=== PATIENT | female | born 1985 | race Caucasian/White ===

== ENCOUNTER → 2019-11-30 07:51 | Outpatient (BNVA) | payer MEDICARE, MEDICAID, SELFPAY | PROVIDERS: PCP Psychiatry & Neurology Psychiatry; Visit Provider Nurse Practitioner | DX: F33.2 Major depressive disorder, recurrent severe without psychotic features (principal); F41.1 Generalized anxiety disorder; F43.12 Post-traumatic stress disorder, chronic; F90.2 Attention-deficit hyperactivity disorder, combined type | CPT/HCPCS: 99214; 99215 ==

== ENCOUNTER → 2020-01-22 08:18 | Outpatient (BNVA) | payer MEDICARE, MEDICAID, SELFPAY | PROVIDERS: PCP Psychiatry & Neurology Psychiatry; Visit Provider Nurse Practitioner | DX: F90.2 Attention-deficit hyperactivity disorder, combined type (principal); F43.12 Post-traumatic stress disorder, chronic; F41.1 Generalized anxiety disorder; F33.2 Major depressive disorder, recurrent severe without psychotic features | CPT/HCPCS: 99214 ==

== ENCOUNTER 2020-01-25 06:00 | Outpatient (RCR) | payer MEDICARE, MEDICAID, SELFPAY | END 2020-02-13 23:59 | disposition home or self-care (01) | LOC: APT 06:00 | PROVIDERS: PCP Psychiatry & Neurology Psychiatry; Referring Provider Orthopaedic Surgery Sports Medicine; Visit Provider Orthopaedic Surgery Sports Medicine | DX: M25.561 Pain in right knee (principal) | CPT/HCPCS: 97110; 97163; 97530 ==

== ENCOUNTER 2020-02-14 06:00 | Outpatient (RCR) | payer MEDICARE, MEDICAID, SELFPAY | END 2020-03-14 23:59 | disposition home or self-care (01) | LOC: APT 06:00 | PROVIDERS: PCP Psychiatry & Neurology Psychiatry; Referring Provider Orthopaedic Surgery Sports Medicine; Visit Provider Orthopaedic Surgery Sports Medicine | DX: M25.561 Pain in right knee (principal) | CPT/HCPCS: 97110 ==

== ENCOUNTER → 2020-03-18 08:21 | Outpatient (BNVA) | payer MEDICARE, MEDICAID, SELFPAY | PROVIDERS: PCP Psychiatry & Neurology Psychiatry; Visit Provider Nurse Practitioner | DX: F90.2 Attention-deficit hyperactivity disorder, combined type (principal); F43.12 Post-traumatic stress disorder, chronic; F41.1 Generalized anxiety disorder; F33.2 Major depressive disorder, recurrent severe without psychotic features | CPT/HCPCS: 99214 ==

== ENCOUNTER 2020-04-29 08:35 | Outpatient (CLI) | payer MEDICARE, MEDICAID, SELFPAY ==
--- NOTE | 2020-04-29 08:47 | CT_ITS ---
NOTE: Report was unsigned for reason: Ordering provider was edited. Original Signature date and time was: 04/29/20 1009 WS: [id number] CT chest wo con [id number] REASON FOR EXAM: LUNG NODULE IV CONTRAST ADMINISTERED: None. TOTAL EXAM DLP: 931.[address] scans at [facility] use at least one of these dose optimization techniques: automated exposure control; mA and/or kV adjustment per patient size (includes targeted exams where dose is matched to clinical indication); or iterative reconstruction. FINDINGS: The thyroid is of normal size. No supraclavicular nodes are masses are seen. The mediastinum showed no abnormalities. Along the right lower lung is a 3.72 mm nodule. The peripheral lungs show normal perfusion with no deficits noted. The liver was normal previous cholecystectomy changes. The adrenal glands were normal no adenomas are seen. The heart chambers and aorta were normal. No dilatation is seen. [facility] CT/CT chest wo con [id number] IMPRESSION: A 3.72 mm nodule in the right lower lung is seen follow-up with six-month scann ing as part of normal protocols.
== END 2020-04-29 08:36 | disposition home or self-care (01) ==
LOC: RAD 08:41
PROVIDERS: PCP Psychiatry & Neurology Psychiatry; Visit Provider Surgery Surgical Critical Care
DX: R91.1 Solitary pulmonary nodule (principal)
CPT/HCPCS: 71250

== ENCOUNTER → 2020-05-24 10:03 | Outpatient (BNVA) | payer MEDICARE, MEDICAID, SELFPAY | PROVIDERS: PCP Psychiatry & Neurology Psychiatry; Visit Provider Nurse Practitioner | DX: F90.2 Attention-deficit hyperactivity disorder, combined type (principal); F43.12 Post-traumatic stress disorder, chronic; F41.1 Generalized anxiety disorder; F33.2 Major depressive disorder, recurrent severe without psychotic features | CPT/HCPCS: 99214 ==

== ENCOUNTER → 2020-07-08 09:04 | Outpatient (BNVA) | payer MEDICARE, MEDICAID, SELFPAY | PROVIDERS: PCP Psychiatry & Neurology Psychiatry; Visit Provider Nurse Practitioner | DX: F43.12 Post-traumatic stress disorder, chronic (principal); F41.1 Generalized anxiety disorder; F90.2 Attention-deficit hyperactivity disorder, combined type; F33.2 Major depressive disorder, recurrent severe without psychotic features | CPT/HCPCS: 99213 ==

== ENCOUNTER → 2020-08-14 07:32 | Outpatient (BNVA) | payer MEDICARE, MEDICAID, SELFPAY | PROVIDERS: PCP Psychiatry & Neurology Psychiatry; Visit Provider Nurse Practitioner | DX: F43.12 Post-traumatic stress disorder, chronic (principal); F90.2 Attention-deficit hyperactivity disorder, combined type; F41.1 Generalized anxiety disorder; F33.2 Major depressive disorder, recurrent severe without psychotic features | CPT/HCPCS: 99214 ==

== ENCOUNTER 2020-09-19 13:31 | Emergency (ER) | payer MEDICARE, MEDICAID, SELFPAY ==
[2020-09-19 13:34] VITALS: BP 164/82; PULSE 104; RESP 18; TEMP 36.4; O2SAT 96; BMI 35.5
--- NOTE | 2020-09-19 13:42 | ECG_ITS ---
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
--- NOTE | 2020-09-19 13:42 | XR_ITS ---
WS: [id number] XR chest 1V portable [id number] REASON FOR EXAM: cp FINDINGS: The heart and mediastinum are within normal limits. No active pulmonary parenchymal or pleural disease noted. Intramedullary corina left humerus. XR/XR chest 1V portable [id number] IMPRESSION: No acute chest abnormality.
--- NOTE | 2020-09-19 13:43 | W.ED.CHESTPA ---
HPI - Chest Pain General: Chief Complaint: Chest Pain Stated Complaint: cp Time Seen by Provider: 09/19/20 13:41 History of Present Illness: HPI narrative: Patient is a 35-year-old female comes to the ED with chest pain. Patient states that chest pain started in the middle of night last night. She describes it as sharp pain worsens with inspiration. She also describes having some pain radiating to left shoulder as well. Currently rates the pain a 6 out of 10. The intensity of the pain has caused episode of emesis. She did say that the evening before chest pain started she was practicing some [employer] moves with her son. She states she was thrown to the ground and hit her chest pretty hard. She did not have any pain immediately after. Associated symptoms: Reports vomiting (one episode); Deny abdominal pain, dyspnea, fever(s), nausea or palpitations Review of Systems Const: Denies: fever(s), chills or fatigue Eyes: Denies: change in vision or eye discomfort ENMT: Denies: throat pain, odynophagia, nasal discharge or nasal congestion Card: Reports: chest pain (anterior chest wall); Denies: palpitations, edema, swelling of feet/ankles, dyspnea on exertion or orthopnea Resp: Reports: pain on inspiration; Denies: dyspnea, productive cough or non-productive cough GI: Reports: vomiting (one episode); Denies: abdominal pain, nausea, diarrhea, constipation or hematochezia : Denies: flank pain, dysuria or hematuria Musc: Denies: neck pain, back pain or extremity swelling Skin/Breast: Denies: rash or new lesions Neuro: Denies: headache(s), numbness in extremities or weakness in extremities PFSH ED PFSH: Medical History Attention-deficit hyperactivity disorder, combined type Generalized anxiety disorder Major depressive disorder, recurrent severe without psychotic features Post-traumatic stress disorder, chronic Social History Smoking and tobacco status: former smoker Physical Exam Const: COMMON NORMALS: patient oriented x3 and alert GENERAL APPEARANCE: cooperative and comfortable HENMT: COMMON NORMALS: normocephalic HEAD & SCALP: normocephalic MOUTH: Normal oral and palatal mucosa present THROAT: posterior oropharynx normal and uvula midline Neck/C-Spine: COMMON NORMALS: supple GENERAL: Yes normal visual inspection Chest: CHEST: Yes tenderness sternum Resp: COMMON NORMALS: normal respiratory effort, No retractions, No use of accessory muscles and clear to auscultation bilaterally AUSCULTATION: clear to auscultation bilaterally Cardio: COMMON NORMALS: regular rate, regular rhythm, S1 normal heart sound present, S2 normal heart sound present, No gallops present (Cardio), No clicks present (Cardio), No murmurs present (Cardio) and Peripheral pulses 2+ throughout RATE: regular rate RHYTHM: regular rhythm HEART SOUNDS: S1 normal heart sound present and S2 normal heart sound present PERIPHERAL PULSES: Peripheral pulses 2+ throughout GI: COMMON NORMALS: Normal to inspection, nondistended, normoactive bowel sounds present, Soft to palpation, non-tender and no masses PALPATION: Yes Soft to palpation : COMMON NORMALS: Yes no CVA tenderness BLADDER/KIDNEY EXAM: Yes no CVA tenderness Back/Pelvis: COMMON NORMALS: no CVA tenderness Extremity: COMMON NORMALS: normal to inspection and no pedal edema Neuro: COMMON NORMALS: patient oriented x3 and moves all extremities SENSORIUM/ORIENTATION: Yes alert Skin: GENERAL SKIN EXAM: dry skin Course Vital Signs: Vital signs: Vital Signs Temperature 97.5 F L 09/19/20 13:34 Pulse Rate 104 H 09/19/20 13:34 Respiratory Rate 20 H 09/19/20 14:19 Blood Pressure 164/82 09/19/20 13:34 Pulse Oximetry 96 09/19/20 13:34 MDM - Chest Pain MDM Narrative: Medical decision making narrative: Patient is a 35-year-old female comes to the ED with chest pain. Patient says it started last night and is located on anterior chest wall. It is pleuritic in nature. Patient did state she was practicing some [email or web address] moves with her son last night and she was thrown to the ground hard and chest hit the ground. exam showed tenderness to the sternum but no other exam findings. Chest x-ray showed no acute findings. CBC and CMP were unremarkable. EKG showed normal sinus rhythm with no ST segment elevation or depression seen and troponin negative. She was given IV Zofran and morphine while in the ED and her chest pain did improve. Patient diagnosed with noncardiac chest pain, likely due to injury the night before while practicing [employer]. She was told to rest, ice limit lifting until seen at her primary care doctor in a week. Return to ED precautions given. Patient understood and agreed with plan. Lab Data: Attestation: I reviewed the patient's lab results. Labs: Lab Results 09/19/20 09/19/20 09/19/20 Range/Units 14:11 14:11 14:11 WBC 9.4 (4.0-10.0) 10^3/ uL RBC 4.41 (4.1-5.3) 10^6/u L Hgb 13.5 (11.5-15.3) g/dL Hct 40.9 (37.0-47.0) % MCV 92.7 (81-99) fL MCH 30.6 (28.0-34.0) pg MCHC 33.0 (30.0-36.0) g/dL RDW 13.0 (12.1-15.1) % Plt Count 404 H (130-400) 10^3/c mm MPV 9.0 (7.4-10.4) fL Neut % (Auto) 63.5 % Lymph % (Auto) 28.8 % [place] % (Auto) 5.2 % Eos % (Auto) 1.8 % Baso % (Auto) 0.5 % Neut # (Auto) 5.96 (1.8-7.7) 10^3/u L Lymph # (Auto) 2.7 (0.8-4.8) 10^3/u L [place] # (Auto) 0.5 (0.2-0.9) 10^3/u L Eos # (Auto) 0.2 (0.0-0.8) 10^3/u L Baso # (Auto) 0.1 (0.0-0.1) 10^3/u L Nucleated RBC % (a uto) 0 % Nucleated RBCs # 0.0 /100WBC Sodium 139 (136-145) mmol/L Potassium 3.4 L (3.5-5.1) mmol/L Chloride 101 (98-107) mmol/L Carbon Dioxide 27 (22-29) mmol/L Anion Gap 14.4 (5-19) BUN 5 L (6-20) mg/dL Creatinine 0.6 (0.5-0.9) mg/dL GFR Calculation 112.5 (90-130) mL/min Glucose 179 H (65-115) mg/dL Calculated Osmolal ity 290 (285-295) mOsm/k g Calcium 9.6 (8.5-10.5) mg/dL Total Bilirubin 0.2 (0.15-1.2) mg/dL AST 28 (0-32) U/L ALT 47 H (0-33) U/L Alkaline Phosphata se 81 (35-105) IU/L Troponin T Baselin e 6 (0-10) ng/L Total Protein 6.5 L (6.6-8.7) g/dL Albumin 4.3 (3.5-5.2) g/dL Globulin 2.2 (1.3-4.6) g/dL HCG, Qual (Negative) 09/19/20 Range/Units 14:11 WBC (4.0-10.0) 10^3/ uL RBC (4.1-5.3) 10^6/u L Hgb (11.5-15.3) g/dL Hct (37.0-47.0) % MCV (81-99) fL MCH (28.0-34.0) pg MCHC (30.0-36.0) g/dL RDW (12.1-15.1) % Plt Count (130-400) 10^3/c mm MPV (7.4-10.4) fL Neut % (Auto) % Lymph % (Auto) % [place] % (Auto) % Eos % (Auto) % Baso % (Auto) % Neut # (Auto) (1.8-7.7) 10^3/u L Lymph # (Auto) (0.8-4.8) 10^3/u L [place] # (Auto) (0.2-0.9) 10^3/u L Eos # (Auto) (0.0-0.8) 10^3/u L Baso # (Auto) (0.0-0.1) 10^3/u L Nucleated RBC % (a uto) % Nucleated RBCs # /100WBC Sodium (136-145) mmol/L Potassium (3.5-5.1) mmol/L Chloride (98-107) mmol/L Carbon Dioxide (22-29) mmol/L Anion Gap (5-19) BUN (6-20) mg/dL Creatinine (0.5-0.9) mg/dL GFR Calculation (90-130) mL/min Glucose (65-115) mg/dL Calculated Osmolal ity (285-295) mOsm/k g Calcium (8.5-10.5) mg/dL Total Bilirubin (0.15-1.2) mg/dL AST (0-32) U/L ALT (0-33) U/L Alkaline Phosphata se (35-105) IU/L Troponin T Baselin e (0-10) ng/L Total Protein (6.6-8.7) g/dL Albumin (3.5-5.2) g/dL Globulin (1.3-4.6) g/dL HCG, Qual Negative (Negative) Imaging Data^: CXR: Attestation: I personally reviewed and interpreted this imaging study as follows: Radiologist's impression: [address] [address] XRay Report Signed Patient: Clari Peck Unit #: [id number] : 1985 Age/Sex: 35 / F ADM Date: 09/19/20 Loc: ER Room/Bed: Attending Dr: Ordering Provider/Ordering MD: Rojelio Robertson Date of Service: 09/19/20 Procedure(s): XR chest 1V portable [id number] Accession Number(s): [id number] Report Number: [id number] WS: [id number] XR chest 1V portable [id number] REASON FOR EXAM: cp FINDINGS: The heart and mediastinum are within normal limits. No active pulmonary parenchymal or pleural disease noted. Intramedullary corina left humerus. XR/XR chest 1V portable [id number] IMPRESSION: No acute chest abnormality. Dictated By: Flaquito Tejada Jr, MD Signed By: Flaquito Tejada Jr, MD Signed Date/Time: 09/19/201436 DD/ 34 EKG Data^: EKG 1: Attestation: I personally reviewed and interpreted this EKG as follows: EKG interpretation date: 09/19/20 Interpretation: Sinus rhythm, 66 bpm, no ST segment elevation or depression seen. Discharge Plan Discharge Patient Disposition: Home Clinical Impression: Non-cardiac chest pain Condition: Stable Prescriptions: New naproxen 500 mg tablet 500 mg PO DAILY PRN (Reason: pain) Qty: 30 RF: 0 No Action duloxetine [Cymbalta] 60 mg capsule,delayed release(DR/EC) 60 mg PO DAILY Qty: 30 RF: 1 eszopiclone [Lunesta] 1 mg tablet 1 mg PO .HS Qty: 30 RF: 1 alprazolam [Xanax] 0.5 mg tablet 0.5 mg PO TID PRN (Reason: anxiety) Qty: 90 RF: 1 Vyvanse 40 mg capsule 40 mg PO DAILY 30 Days Qty: 30 RF: 0 pregabalin [Lyrica] 100 mg capsule 100 mg PO QDAY RF: 0 colchicine 0.6 mg capsule 0.6 mg PO BID RF: 0 hydroxychloroquine [Plaquenil] 200 mg tablet 200 mg PO BID RF: 0 esomeprazole magnesium [Nexium 24HR] 20 mg capsule,delayed release(DR/EC) 20 mg PO DAILY RF: 0 acetaminophen [Tylenol Extra Strength] 500 mg tablet 1,000 mg PO TID PRN (Reason: Pain) RF: 0 aspirin 81 mg tablet,delayed release (DR/EC) 81 mg PO DAILY RF: 0 cyclobenzaprine 10 mg tablet 10 mg PO BID PRN (Reason: muscle spasm) RF: 0 aspirin 325 mg Tablet 325 mg PO Q4H PRN (Reason: Pain) RF: 0 leflunomide 20 mg tablet 20 mg PO DAILY RF: 0 Multiple Vitamin-Minerals Tablet 1 tab PO DAILY RF: 0 Multiple Vitamin, Womens Tablet 1 tab PO DAILY RF: 0 Benlysta 200 mg/mL auto-injector See Rx Instructions .ROUTE .COMPLEX RF: 0 Discharge Orders: Discharge Order (Routine); Ordered 09/19/20 Ordered By: Rojelio Robertson Referrals: Vijay Alegria MD [Primary Care Provider] - Discharge Diet: Regular Discharge Activity: Limit activity as instructed Patient Instructions: Noncardiac Chest Pain (ED) Activity Restrictions/Additional Instructions: Follow-up with medical provider as directed in about 7 days. Rest, apply cold pack on chest and limit lifting to allow for healing. Take medications as prescribed. Return to the ER or your medical provider if condition worsens. Please read and understand discharge instructions. If any questions, please ask. 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
[2020-09-19 14:19] VITALS: RESP 20
[2020-09-19] MEDS: ondansetron 2 mg/ML SDV 2 mL 4 MG IVP (14:19)
[2020-09-19] MEDS: morphine 4 mg/mL SDV 1 mL IVP (14:19)
[2020-09-19 14:22] LABS: Basophils # 0.1 10^3/uL (0.0-0.1); Basophils % 0.5 %; Eosinophils # 0.2 10^3/uL (0.0-0.8); Eosinophils % 1.8 %; Hematocrit 40.9 % (37.0-47.0); Hemoglobin 13.5 g/dL (11.5-15.3); Lymphocytes # 2.7 10^3/uL (0.8-4.8); Lymphocytes % 28.8 %; Mean Corpuscular Hemoglobin 30.6 pg (28.0-34.0); Mean Corpuscular Volume 92.7 fL (81-99); Monocytes # 0.5 10^3/uL (0.2-0.9); Monocytes % 5.2 %; Neutrophils # 5.96 10^3/uL (1.8-7.7); Neutrophils % 63.5 %; Nucleated Red Blood Cells % 0 %; Platelet Count 404 10^3/cmm (130-400); Red Blood Count 4.41 10^6/uL (4.1-5.3); White Blood Count 9.4 10^3/uL (4.0-10.0)
[2020-09-19 14:37] LABS: HCG, Serum Qual Negative (Negative)
[2020-09-19 14:43] LABS: Alanine Aminotransferase 47 U/L (0-33); Albumin Level 4.3 g/dL (3.5-5.2); Alkaline Phosphatase 81 IU/L (35-105); Anion Gap 14.4 (5-19); Aspartate Amino Transferase 28 U/L (0-32); Blood Urea Nitrogen 5 mg/dL (6-20); Calcium 9.6 mg/dL (8.5-10.5); Carbon Dioxide 27 mmol/L (22-29); Chloride 101 mmol/L (98-107); Creatinine Clr Calc Pharmacy 153.0017; Globulin 2.2 g/dL (1.3-4.6); Glomerular Filtration Rate 112.5 mL/min (90-130); Glucose 179 mg/dL (65-115); Osmolality Calculated 290 mOsm/kg (285-295); Potassium 3.4 mmol/L (3.5-5.1); Sodium 139 mmol/L (136-145); Total Bilirubin 0.2 mg/dL (0.15-1.2); Total Protein 6.5 g/dL (6.6-8.7)
[2020-09-19 14:46] LABS: Troponin(5th) Baseline 6 ng/L (0-10)
[2020-09-19 15:28] VITALS: BP 112/79; PULSE 82; RESP 18; O2SAT 94
[2020-09-23 10:57] LABS: Heparin XA Low Molecular <0.20 IU/mL
== END 2020-09-19 15:30 | disposition home or self-care (01) ==
PROVIDERS: Emergency Provider Physician Assistant; PCP Psychiatry & Neurology Psychiatry
DX: R07.89 Other chest pain (principal); Z79.82 Long term (current) use of aspirin; Z87.891 Personal history of nicotine dependence
CPT/HCPCS: 12345; 71045; 80053; 84484; 84703; 85025; 85520; 93005; 96374; 96375; 99282; 99283; J2270; J2405

== ENCOUNTER → 2020-10-01 07:49 | Outpatient (BNVA) | payer MEDICARE, MEDICAID, SELFPAY | PROVIDERS: PCP Psychiatry & Neurology Psychiatry; Visit Provider Nurse Practitioner | DX: F33.2 Major depressive disorder, recurrent severe without psychotic features (principal); F41.1 Generalized anxiety disorder; F43.12 Post-traumatic stress disorder, chronic; F90.2 Attention-deficit hyperactivity disorder, combined type | CPT/HCPCS: 99214 ==

== ENCOUNTER 2020-10-18 14:15 | Outpatient (CLI) | payer MEDICARE, MEDICAID, SELFPAY ==
--- NOTE | 2020-10-18 14:25 | CT_ITS ---
WS: [id number] CT scan of the chest without IV contrast, additional two-dimensional coronal and sagittal reconstruct ion was performed. 10/18/2020 Clinical Data: CHEST PAIN ON EXERTION AND BY BREATHING. SHORTNESS OF BREATH Comparison: CT chest, 04/29/2020. DLP: 980.[address] scans at [facility] use at least one of these dose optimization techniques: automat ed exposure control; mA and/or kV adjustment per patient size (includes targeted exams where dose is matched to clinical indication); or iterative reconstruction. Findings: There is a soft tissue nodule abutting the posterior surface of the right lower pleura with an greate st diameter 1.5 cm. No other nodules are seen. No masses or effusions are seen. The heart size is normal with no pericardial effusion. No pneumonia or pneumothorax is seen. The trachea bifurcates into the bronchi. The pulmonary arterial system and t horacic aorta demonstrate no abnormalities or dilatations. There is no axillary or significant medias tinal adenopathy. The upper abdomen shows no change from before. CT/CT chest wo con [id number] Impression: 1. No change in soft tissue nodule adjacent to the posterior right lower lobe p leural surface. 2. Recommend repeat CT chest in one year.
== END 2020-10-18 14:16 | disposition home or self-care (01) ==
LOC: RADWPI 14:20
PROVIDERS: PCP Psychiatry & Neurology Psychiatry; Visit Provider Nurse Practitioner Family
DX: R07.9 Chest pain, unspecified (principal); R06.02 Shortness of breath
CPT/HCPCS: 71250

== ENCOUNTER → 2021-01-07 07:43 | Outpatient (BNVA) | payer MEDICARE, MEDICAID, SELFPAY | PROVIDERS: PCP Psychiatry & Neurology Psychiatry; Visit Provider Nurse Practitioner | DX: F33.2 Major depressive disorder, recurrent severe without psychotic features (principal); F41.1 Generalized anxiety disorder; F43.12 Post-traumatic stress disorder, chronic; F90.2 Attention-deficit hyperactivity disorder, combined type | CPT/HCPCS: 99214 ==

== ENCOUNTER 2021-02-10 15:40 | Outpatient (CLI) | payer MEDICARE, MEDICAID, SELFPAY ==
[2021-02-10 16:24] LABS: Alanine Aminotransferase 30 U/L (0-33); Albumin Level 4.4 g/dL (3.5-5.2); Alkaline Phosphatase 92 IU/L (35-105); Anion Gap 16.4 (5-19); Aspartate Amino Transferase 18 U/L (0-32); Blood Urea Nitrogen 7 mg/dL (6-20); Calcium 9.7 mg/dL (8.5-10.5); Carbon Dioxide 26 mmol/L (22-29); Chloride 102 mmol/L (98-107); Globulin 2.8 g/dL (1.3-4.6); Glomerular Filtration Rate 112.5 mL/min (90-130); Glucose 105 mg/dL (65-115); Osmolality Calculated 290 mOsm/kg (285-295); Potassium 3.4 mmol/L (3.5-5.1); Sodium 141 mmol/L (136-145); Total Bilirubin 0.2 mg/dL (0.15-1.2); Total Protein 7.2 g/dL (6.6-8.7)
== END 2021-02-10 15:41 | disposition home or self-care (01) ==
LOC: LAB 15:47
PROVIDERS: PCP Psychiatry & Neurology Psychiatry; Visit Provider Internal Medicine
DX: E87.6 Hypokalemia (principal)
CPT/HCPCS: 36415; 80053

== ENCOUNTER 2021-02-11 16:59 | Outpatient (CLI) | payer MEDICARE, MEDICAID, SELFPAY ==
[2021-02-11 20:07] LABS: Creatinine 24 Hour Urine 899.3 mg/dL (601-1689); Potassium, Urine Result 35 mmol/L; Sodium, Urine Result 31 mmol/L; Total Volume Urine 2725 ml; Total Volume, Urine 2725 mL; Urine Creatinine 33 mg/dL (28-217); Urine Potassium 24 Hour 13 mmol/24H (25-125)
[2021-02-11 20:51] LABS: Total Protein 24 Hour Urine 152.6 mg/24HR (0-150); Total Volume, Urine 2725 mL; Urine Total Protein 24 Hour 5.6 mg/dL (0-150)
[2021-02-14 08:58] LABS: PROTEIN, TOTAL, 24 HR UR 109 mg/24 h (<150); Protein/Creatinine Ratio 0.121 (< OR = 0.114); Protein/Creatinine Ratio 121 mg/g creat (< OR = 114)
[2021-02-14 15:53] LABS: ALBUMIN 100 %; ALPHA-1-GLOBULINS 0 %; ALPHA-2-GLOBULINS 0 %; BETA GLOBULINS 0 %; GAMMA GLOBULINS 0 %
== END 2021-02-11 17:00 | disposition home or self-care (01) ==
LOC: LAB 17:04
PROVIDERS: PCP Psychiatry & Neurology Psychiatry; Visit Provider Internal Medicine
DX: E87.6 Hypokalemia (principal)
CPT/HCPCS: 82570; 84133; 84156; 84300

== ENCOUNTER 2021-04-12 23:36 | Emergency (ER) | payer MEDICARE, MEDICAID, SELFPAY ==
[2021-04-12 23:43] VITALS: BP 161/130; PULSE 120; RESP 18; TEMP 36.1; O2SAT 96; BMI 34.7
--- NOTE | 2021-04-12 23:53 | XRR_ITS ---
PROCEDURE INFORMATION: Exam: XR Left Ankle Exam date and time: 04/12/2021 11:55 PM Age: 36 years old Clinical indication: Injury or trauma; Fall; Sprain or strain; Ankle; Left; Prior surgery; Surgery date: 1-6 months TECHNIQUE: Imaging protocol: XR Left ankle. Views: 3 or more views. COMPARISON: No relevant prior studies available. FINDINGS: Bones/joints: No fracture or dislocation. A tiny plantar calcaneal spur is appreciated. Soft tissues: Soft tissue swelling is observed in the lateral ankle. XR/XR ankle LT min 3V* [id number] IMPRESSION: No fracture or dislocation.
[2021-04-13] MEDS: ondansetron 4 MG Tablet PO (00:01)
[2021-04-13] MEDS: HYDROcodone-acetaminophen 5-325 mg Tablet 1 TAB PO (00:02)
--- NOTE | 2021-04-13 00:29 | W.ED.FALL ---
HPI - Fall General: Chief Complaint: Fall Stated Complaint: On Crutches Hit head Time Seen by Provider: 04/12/21 23:38 Source: patient Mode of arrival: wheelchair History of Present Illness: HPI Narrative: 36 yo female patient presents to ER with left ankle pain. Pt states she just had surgery for an ankle fractrure with stitches removed 2 days ago. Pt states she tripped and ell twisting her ankle and had immediate pain Pt denies any other injuries Pt denies nay numbness or tingling. pt is still using crutches from previous fracture Associated symptoms-after fall: Denies abdominal pain, chest pain, confusion, difficulty walking, headache(s), hematuria, lightheadedness, neck pain or vertigo Review of Systems Const: Denies: fever(s), chills, body aches, change in appetite, change in weight, fatigue, malaise or diaphoresis Eyes: Denies: change in vision, blurry vision, blind spots, photophobia, eye discomfort, eye discharge, eye redness, floaters or seeing flashes ENMT: Denies: throat pain, uvular edema, enlarged tonsils, odynophagia, hoarseness, mouth pain, swelling of lips/tongue, oral sores, bleeding gums, dental pain, dry mouth, ear or mastoid pain, ear discharge, change in hearing, tinnitus, disequilibrium, nasal discharge, nasal congestion, post nasal drip or sinus pain Card: Denies: chest pain, palpitations, irregular heart rhythm, edema, swelling of feet/ankles, lightheadedness, syncope, pre-syncope, dyspnea on exertion, orthopnea, leg pain with exertion or acrocyanosis Resp: Denies: dyspnea, productive cough, non-productive cough, wheezing, stridor, pain on inspiration, change in phlegm color, hemoptysis or chest congestion GI: Denies: abdominal pain, nausea, vomiting, hematemesis, dysphagia, diarrhea, constipation, GI cramping, change in bowel habits or rectal pain : Denies: flank pain, difficulty voiding, dysuria, urinary frequency, urinary urgency, urinary hesitancy or hematuria Musc: Reports: extremity pain; Denies: neck pain, back pain, extremity swelling, joint pain, joint swelling, joint redness, joint warmth or deformity Skin/Breast: Denies: rash, pruritus, erythema, sores, new lesions, changes in skin color or dry skin Neuro: Denies: headache(s), numbness in extremities, weakness in extremities, sensory changes, lack of coordination, difficulty walking, frequent falls, dizziness, vertigo, confusion, behavioral changes, Slurred speech present, difficulty communicating thoughts or seizure-like activity Psych: Denies: anxiety, depression, suicidal ideation or homicidal ideation Endo: Denies: polyuria, polydipsia, tired all the time, cold intolerance, excessive sweating, flushing, hot flashes or heat intolerance [place]/Lymph: Denies: easy bruising, easy bleeding, petechiae, purpura, enlarged lymph nodes or tender lymph nodes All/Imm: Denies: urticaria, throat swelling, tongue swelling, facial swelling, acute wheezing or itchy eyes PFSH ED PFSH: Medical History (Updated 04/13/21 @ 00:46 by Dulce Perkins) Attention-deficit hyperactivity disorder, combined type Generalized anxiety disorder Major depressive disorder, recurrent severe without psychotic features Post-traumatic stress disorder, chronic Social History Smoking and tobacco status: former smoker Physical Exam Const: COMMON NORMALS: no acute distress, average body habitus, patient oriented x3, no limitations, healthy appearing, alert and well nourished HENMT: COMMON NORMALS: normocephalic, atraumatic, hearing grossly normal bilaterally, external ears normal, EAC's normal, TM's normal bilaterally, Normal external nose present, Normal nasal mucous membranes and turbinates present, moist oral mucous membranes, oropharynx normal, dentition normal and gingiva normal HEAD & SCALP: normocephalic and atraumatic NOSE: Normal external nose present and Normal nasal mucous membranes and turbinates present EXTERNAL EAR: Yes external ears normal EXTERNAL AUDITORY CANAL: EAC's normal TYMPANIC MEMBRANE: TM's normal bilaterally THROAT: no uvular edema Eye: COMMON NORMALS: Equal, round and reactive pupils present and EOMs intact bilaterally PUPIL: Yes Equal, round and reactive pupils present Neck/C-Spine: COMMON NORMALS: full ROM, no lymphadenopathy and no meningeal signs Extremity: EXTREMITY IMAGE (FRONT): 1. pain and swelling to medial lateral ascpet of ankle Neuro: COMMON NORMALS: patient oriented x3 SENSORIUM/ORIENTATION: Yes alert MENINGEAL SIGNS: Yes no meningeal signs Course Vital Signs: Vital signs: Vital Signs Temperature 96.9 F L 04/12/21 23:43 Pulse Rate 120 H 04/12/21 23:43 Respiratory Rate 18 04/12/21 23:43 Blood Pressure 161/130 04/12/21 23:43 Pulse Oximetry 96 04/12/21 23:43 MDM - Fall MDM Narrative: Medical decision making narrative: Pt is well appearing non toxic and in no acute distress. Pt is NVI distally. Pt xray does not reveal any acute fractures or disocations. Pt is still using crutches for assistance I advised to continue and to follow up with ortho. Pt pain was treated here with [place]. Pt states she has [place] at home and wants something stronger. I advised patient to ontinue to take meds as directed Rest Ice and elevate and to discuss continued pain regien with ortho. Discharge Plan Discharge Patient Disposition: Home Clinical Impression: Ankle pain Qualifiers: Chronicity: acute Laterality: left Qualified Code(s): M25.572 - Pain in left ankle and joints of left foot Condition: Stable Prescriptions: No Action eszopiclone [Lunesta] 1 mg tablet 1 mg PO .HS Qty: 30 RF: 1 pregabalin [Lyrica] 100 mg capsule 100 mg PO QDAY RF: 0 colchicine 0.6 mg capsule 0.6 mg PO BID RF: 0 hydroxychloroquine [Plaquenil] 200 mg tablet 200 mg PO BID RF: 0 esomeprazole magnesium [Nexium 24HR] 20 mg capsule,delayed release(DR/EC) 20 mg PO DAILY RF: 0 acetaminophen [Tylenol Extra Strength] 500 mg tablet 1,000 mg PO TID PRN (Reason: Pain) RF: 0 aspirin 81 mg tablet,delayed release (DR/EC) 81 mg PO DAILY RF: 0 cyclobenzaprine 10 mg tablet 10 mg PO BID PRN (Reason: muscle spasm) RF: 0 alprazolam [Xanax] 0.5 mg tablet 0.5 mg PO TID PRN (Reason: anxiety) Qty: 90 RF: 2 venlafaxine [Effexor XR] 150 mg capsule,extended release 24hr 150 mg PO QAM Qty: 30 RF: 2 Vyvanse 40 mg capsule 40 mg PO DAILY 30 Days Qty: 30 RF: 0 aspirin 325 mg Tablet 325 mg PO Q4H PRN (Reason: Pain) RF: 0 leflunomide 20 mg tablet 20 mg PO DAILY RF: 0 Multiple Vitamin-Minerals Tablet 1 tab PO DAILY RF: 0 Multiple Vitamin, Womens Tablet 1 tab PO DAILY RF: 0 Benlysta 200 mg/mL auto-injector See Rx Instructions .ROUTE .COMPLEX RF: 0 naproxen 500 mg tablet 500 mg PO DAILY PRN (Reason: pain) Qty: 30 RF: 0 Discharge Orders: Discharge ED (Routine); Ordered 04/13/21 Ordered By: Dulce Perkins Referrals: ANNALISA CHILEL APRN [Primary Care Provider] - Discharge Diet: Advance as tolerated Discharge Activity: Increase activity as tolerated Patient Instructions: Opioid Safety Activity Restrictions/Additional Instructions: Please rest, ice and elevate extremity Please follow up with your Orthopedist who did surgery Coding Level 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
== END 2021-04-13 01:52 | disposition home or self-care (01) ==
PROVIDERS: Emergency Provider Registered Nurse; PCP Nurse Practitioner Family
DX: M25.572 Pain in left ankle and joints of left foot (principal); Z79.82 Long term (current) use of aspirin; Z87.891 Personal history of nicotine dependence
CPT/HCPCS: 73610; 99283; Q0162

== ENCOUNTER → 2021-04-21 08:12 | Outpatient (BNVA) | payer MEDICARE, MEDICAID, SELFPAY | PROVIDERS: PCP Nurse Practitioner Family; Visit Provider Nurse Practitioner | DX: F90.2 Attention-deficit hyperactivity disorder, combined type (principal); F43.12 Post-traumatic stress disorder, chronic; F41.1 Generalized anxiety disorder; F33.2 Major depressive disorder, recurrent severe without psychotic features | CPT/HCPCS: 99214 ==

== ENCOUNTER → 2021-04-22 08:17 | Outpatient (BNVA) | payer MEDICARE, MEDICAID, SELFPAY | PROVIDERS: PCP Nurse Practitioner Family; Visit Provider Specialist | DX: G43.711 Chronic migraine without aura, intractable, with status migrainosus (principal); R56.9 Unspecified convulsions; F43.12 Post-traumatic stress disorder, chronic; F41.1 Generalized anxiety disorder; F33.2 Major depressive disorder, recurrent severe without psychotic features; Z87.891 Personal history of nicotine dependence | CPT/HCPCS: 99205 ==

== ENCOUNTER → 2021-05-26 13:20 | Outpatient (BNVA) | payer MEDICARE, MEDICAID, SELFPAY | PROVIDERS: PCP Nurse Practitioner Family; Visit Provider Obstetrics & Gynecology | DX: Z32.01 Encounter for pregnancy test, result positive (principal) | CPT/HCPCS: 84702; 86850; 86900 ==

== ENCOUNTER → 2021-05-29 08:18 | Outpatient (BNVA) | payer MEDICARE, MEDICAID, SELFPAY | PROVIDERS: PCP Nurse Practitioner Family; Visit Provider Obstetrics & Gynecology | DX: Z32.01 Encounter for pregnancy test, result positive (principal) | CPT/HCPCS: 84702 ==

== ENCOUNTER → 2021-07-17 09:05 | Outpatient (BNVA) | payer MEDICARE, MEDICAID, SELFPAY | PROVIDERS: PCP Nurse Practitioner Family; Visit Provider Nurse Practitioner | DX: F33.2 Major depressive disorder, recurrent severe without psychotic features (principal); F41.1 Generalized anxiety disorder; F43.12 Post-traumatic stress disorder, chronic; F90.2 Attention-deficit hyperactivity disorder, combined type | CPT/HCPCS: 99214 ==

== ENCOUNTER → 2021-10-31 07:38 | Outpatient (BNVA) | payer MEDICARE, MEDICAID, SELFPAY | PROVIDERS: PCP Nurse Practitioner Family; Visit Provider Nurse Practitioner | DX: F33.2 Major depressive disorder, recurrent severe without psychotic features (principal); F41.1 Generalized anxiety disorder; F43.12 Post-traumatic stress disorder, chronic; F90.2 Attention-deficit hyperactivity disorder, combined type | CPT/HCPCS: 99214 ==

== ENCOUNTER → 2021-12-05 07:21 | Outpatient (BNVA) | payer MEDICARE, MEDICAID, SELFPAY | PROVIDERS: PCP Nurse Practitioner Family; Visit Provider Nurse Practitioner | DX: F33.2 Major depressive disorder, recurrent severe without psychotic features (principal); F41.1 Generalized anxiety disorder; F43.12 Post-traumatic stress disorder, chronic; F90.2 Attention-deficit hyperactivity disorder, combined type | CPT/HCPCS: 99214 ==

== ENCOUNTER → 2022-03-10 07:52 | Outpatient (BNVA) | payer MEDICARE, MEDICAID, SELFPAY | PROVIDERS: PCP Nurse Practitioner Family; Visit Provider Nurse Practitioner | DX: F33.2 Major depressive disorder, recurrent severe without psychotic features (principal); F41.1 Generalized anxiety disorder; F43.12 Post-traumatic stress disorder, chronic; F90.2 Attention-deficit hyperactivity disorder, combined type | CPT/HCPCS: 99214 ==

== ENCOUNTER → 2022-04-02 13:45 | Outpatient (BNVA) | payer MEDICARE, MEDICAID, SELFPAY | PROVIDERS: PCP Nurse Practitioner Family; Referring Provider Nurse Practitioner Family; Visit Provider Internal Medicine | DX: E21.3 Hyperparathyroidism, unspecified (principal); E55.9 Vitamin D deficiency, unspecified; R63.5 Abnormal weight gain; E87.6 Hypokalemia; I10 Essential (primary) hypertension; N20.0 Calculus of kidney; F33.2 Major depressive disorder, recurrent severe without psychotic features; E28.2 Polycystic ovarian syndrome; Z68.41 Body mass index [BMI] 40.0-44.9, adult; F17.210 Nicotine dependence, cigarettes, uncomplicated | CPT/HCPCS: 80048; 82088; 82306; 82310; 83970; 84244; 84439; 84443; 99204 ==

== ENCOUNTER 2022-04-09 09:36 | Outpatient (CLI) | payer MEDICARE, MEDICAID, SELFPAY ==
--- NOTE | 2022-04-09 09:51 | CT_ITS ---
WS: [id number] CT ABDOMEN PELVIS TECHNIQUE: Noncontrast CT of the abdomen and pelvis with coronal and sagittal reformatted images. CLINICAL INFORMATION: NEPHROLITHIASIS/FLANK PAIN COMPARISON: CT July 18, 2019 DLP: 1250.[address] scans at [facility] use at least one of these dose optimization techniques: automated e xposure control; mA and/or kV adjustment per patient size (includes targeted exams where dose is matc hed to clinical indication); or iterative reconstruction. FINDINGS: Adrenal glands are normal. No hydronephrosis in either kidney. No obstructing renal or ureteral calcu li. Pelvic phleboliths. Lung bases are well aerated. Calcified nodule RIGHT lower lobe likely benign granuloma measuring 10 mm stable in size compared to previous. Normal noncontrast liver. Cholecystectomy clips. Small esophageal hiatal hernia. Normal noncontrast s pleen. Adrenal glands are normal. Noncontrast pancreas is normal. Normal caliber abdominal aorta. Incidental fat-containing umbilical hernia. Normal sigmoid colon. No high-grade small or large bowel obstruction. Normal appendix in the lower quadrant. Lobulated heterogeneous uterus. Nodularity along the fundus likely small fibroids. CT/CT kidney stone [id number] IMPRESSION: 1. No obstructing renal or ureteral calculi. No hydronephrosis in either kidne y. 2. Prior cholecystectomy. 3. Small esophageal hiatal hernia. 4. Tiny fat-containing umbilical hernia. 5. Enlarged lobulated uterus with suspected small fibroids. This can be furthe r evaluated with ultrasound. 6. No other acute findings.
== END 2022-04-09 09:37 | disposition home or self-care (01) ==
PROVIDERS: PCP Nurse Practitioner Family; Visit Provider Internal Medicine Nephrology
DX: N20.0 Calculus of kidney (principal); Z90.49 Acquired absence of other specified parts of digestive tract; K44.9 Diaphragmatic hernia without obstruction or gangrene; K42.9 Umbilical hernia without obstruction or gangrene; N85.2 Hypertrophy of uterus
CPT/HCPCS: 74176

== ENCOUNTER → 2022-04-30 06:16 | Outpatient (BNVA) | payer MEDICARE, MEDICAID, SELFPAY | PROVIDERS: PCP Nurse Practitioner Family; Visit Provider Nurse Practitioner | DX: F90.2 Attention-deficit hyperactivity disorder, combined type (principal); F43.12 Post-traumatic stress disorder, chronic; F41.1 Generalized anxiety disorder; F33.2 Major depressive disorder, recurrent severe without psychotic features | CPT/HCPCS: 99214 ==

== ENCOUNTER → 2022-06-03 11:15 | Outpatient (BNVA) | payer MEDICARE, MEDICAID, SELFPAY | PROVIDERS: PCP Nurse Practitioner Family; Visit Provider Internal Medicine | DX: E21.3 Hyperparathyroidism, unspecified (principal); N20.0 Calculus of kidney; E87.6 Hypokalemia; E55.9 Vitamin D deficiency, unspecified; I10 Essential (primary) hypertension; R63.5 Abnormal weight gain; E28.2 Polycystic ovarian syndrome; Z68.39 Body mass index [BMI] 39.0-39.9, adult; F17.210 Nicotine dependence, cigarettes, uncomplicated; Z79.84 Long term (current) use of oral hypoglycemic drugs | CPT/HCPCS: 99214 ==

== ENCOUNTER 2022-07-30 11:44 | Outpatient (CLI) | payer MEDICARE, MEDICAID, SELFPAY ==
[2022-07-30 12:57] LABS: INR 0.83 (0.8-1.2)
[2022-07-30 12:58] LABS: Partial Thromboplastin Time 23.2 SECONDS (23.9-36.7)
[2022-07-30 13:15] LABS: Complement C3 165 mg/dL (90-180)
[2022-07-31 14:14] LABS: Anti-Double Strand DNA AB <1 IU/mL
[2022-08-04 14:42] LABS: ANCA Screen NEGATIVE (NEGATIVE)
[2023-08-10 16:42] LABS: SM/RNP Antibodies <1.0 NEG
== END 2022-07-30 11:45 | disposition home or self-care (01) ==
LOC: LAB 11:49
PROVIDERS: PCP Nurse Practitioner Family; Visit Provider Internal Medicine Nephrology
DX: R82.3 Hemoglobinuria (principal); M32.19 Other organ or system involvement in systemic lupus erythematosus
CPT/HCPCS: 36415; 85610; 85730; 86036; 86160; 86225; 86235

== ENCOUNTER 2022-08-03 09:18 | Outpatient (CLI) | payer MEDICARE, MEDICAID, SELFPAY ==
[2022-08-03 10:50] LABS: Urine Creatinine 56 mg/dL (28-217)
[2022-08-03 11:00] LABS: Total Volume Urine 2600 ml; Total Volume, Urine 2600 mL
[2022-08-03 11:18] LABS: Urine Total Protein 4.8 mg/dL (0-150); Urine Total Protein 24 Hour 124.8 mg/24hr (0-150)
== END 2022-08-03 09:19 | disposition home or self-care (01) ==
PROVIDERS: PCP Nurse Practitioner Family; Visit Provider Internal Medicine
DX: M32.9 Systemic lupus erythematosus, unspecified (principal); N06.9 Isolated proteinuria with unspecified morphologic lesion
CPT/HCPCS: 82570; 84156; 84166; 86335

== ENCOUNTER → 2022-08-10 15:27 | Outpatient (BNVA) | payer MEDICARE, MEDICAID, SELFPAY | PROVIDERS: PCP Nurse Practitioner Family; Visit Provider Internal Medicine | DX: N20.0 Calculus of kidney (principal); E21.3 Hyperparathyroidism, unspecified; E55.9 Vitamin D deficiency, unspecified; E87.6 Hypokalemia; I10 Essential (primary) hypertension; R63.5 Abnormal weight gain; E28.2 Polycystic ovarian syndrome; Z68.41 Body mass index [BMI] 40.0-44.9, adult; Z79.84 Long term (current) use of oral hypoglycemic drugs; F17.210 Nicotine dependence, cigarettes, uncomplicated | CPT/HCPCS: 99213 ==

== ENCOUNTER → 2022-12-28 14:51 | Outpatient (BNVA) | payer MEDICARE, MEDICAID, SELFPAY | PROVIDERS: PCP Nurse Practitioner Family; Visit Provider Internal Medicine | DX: N20.0 Calculus of kidney (principal); E21.3 Hyperparathyroidism, unspecified; E55.9 Vitamin D deficiency, unspecified; I10 Essential (primary) hypertension; E87.6 Hypokalemia; R63.5 Abnormal weight gain; E28.2 Polycystic ovarian syndrome; Z79.84 Long term (current) use of oral hypoglycemic drugs; Z68.41 Body mass index [BMI] 40.0-44.9, adult | CPT/HCPCS: 99214 ==

== ENCOUNTER → 2023-05-06 13:32 | Outpatient (BNVA) | payer MEDICARE, MEDICAID, SELFPAY | PROVIDERS: PCP Nurse Practitioner Family; Visit Provider Internal Medicine | DX: N20.0 Calculus of kidney (principal); E21.3 Hyperparathyroidism, unspecified; E55.9 Vitamin D deficiency, unspecified; I10 Essential (primary) hypertension; E87.6 Hypokalemia; E28.2 Polycystic ovarian syndrome; R63.5 Abnormal weight gain; Z68.41 Body mass index [BMI] 40.0-44.9, adult; Z79.84 Long term (current) use of oral hypoglycemic drugs | CPT/HCPCS: 99214 ==

== ENCOUNTER 2023-07-29 14:55 | Outpatient (CLI) | payer MEDICARE, MEDICAID, SELFPAY ==
--- NOTE | 2023-07-29 15:08 | CTR_ITS ---
PROCEDURE INFORMATION: Exam: CT Chest Without and With Contrast; Diagnostic Exam date and time: 07/29/2023 3:44 PM Age: 38 years old Clinical indication: Abnormal findings; Abnormal radiologic exam of lung or chest; Additional info: R pulmonary nodule, PT having mammo too TECHNIQUE: Imaging protocol: Diagnostic computed tomography of the chest without and with contrast. Radiation optimization: All CT scans at this facility use at least one of these dose optimization techniques: automated exposure control; mA and/or kV adjustment per patient size (includes targeted exams where dose is matched to clinical indication); or iterative reconstruction. Contrast material: OMNI 350; Contrast volume: 100 ml; Contrast route: INTRAVENOUS (IV); REPORTING DATA: Count of CT and Cardiac NM exams in prior 12 months: This patient has received 0 known CTs and 0 known cardiac nuclear medicine studies in the 12 months prior to the current study. COMPARISON: CT chest wo con [id number] 10/18/2020 2:33 PM RADIATION DOSE METRICS: Total DLP (mGy-cm): 1258.84 FINDINGS: Lungs: Right lower lobe partially calcified pulmonary nodule, similar dating back to 04/29/2020 consistent with a benign granuloma. Pleural spaces: Unremarkable. No pneumothorax. No pleural effusion. Heart: Unremarkable. No cardiomegaly. No pericardial effusion. Negative for coronary artery atherosclerotic calcifications. Lymph nodes: Unremarkable. No enlarged lymph nodes. Vasculature: Unremarkable. No aortic aneurysm. Liver: Hepatic steatosis. 2.5 cm hyperenhancing region in the left hepatic lobe likely related to bolus timing. Gallbladder and bile ducts: Cholecystectomy. Bones/joints: Left humeral surgical hardware somewhat visualized. Soft tissues: Splenic cyst. CT/CT chest wo/w con [id number] IMPRESSION: 1. Right lower lobe partially calcified pulmonary nodule, similar dating back to 04/29/2020 consistent with a benign granuloma. 2. Hepatic steatosis. 3. Cholecystectomy. 4. 2.5 cm hyperenhancing region in the left hepatic lobe likely related to bolus timing. 5. Left humeral surgical hardware somewhat visualized. 6. Splenic cyst.
--- NOTE | 2023-07-29 15:12 | MM_ITS ---
WS: [id number] BILATERAL SCREENING DIGITAL TOMOSYNTHESIS MAMMOGRAM WITH CAD HISTORY: SCREENING COMPARISON: 10/25/2018 and 02/26/2014 Bilateral CC and MLO views with tomosynthesis and synthetic mammography submitted. Computer aided det ection analyzed. Breast composition: There are scattered areas of fibroglandular density. No suspicious masses, microc alcifications or architectural distortion. Benign lymph node upper outer quadrant LEFT breast. IMPRESSION: MM/[place] [id number] BI-RADS: 2-Benign FOLLOW UP: 1 Year Follow-up
[2023-07-29] MEDS: iohexol 350 mg/mL 500 mL Btl (per mL) IV (15:18)
== END 2023-07-29 14:56 | disposition home or self-care (01) ==
LOC: RAD 15:00
PROVIDERS: PCP Nurse Practitioner Family; Visit Provider Nurse Practitioner Family
DX: Z12.31 Encounter for screening mammogram for malignant neoplasm of breast (principal); R91.1 Solitary pulmonary nodule; K76.0 Fatty (change of) liver, not elsewhere classified; Z90.49 Acquired absence of other specified parts of digestive tract; D73.4 Cyst of spleen
CPT/HCPCS: 71270; 77063; 77067; Q9967

== ENCOUNTER → 2023-08-09 11:38 | Outpatient (BNVA) | payer MEDICARE, MEDICAID, SELFPAY | PROVIDERS: PCP Nurse Practitioner Family; Visit Provider Internal Medicine | DX: N20.0 Calculus of kidney (principal); E21.3 Hyperparathyroidism, unspecified; E55.9 Vitamin D deficiency, unspecified; I10 Essential (primary) hypertension; E87.6 Hypokalemia; R63.5 Abnormal weight gain; E28.2 Polycystic ovarian syndrome; Z79.84 Long term (current) use of oral hypoglycemic drugs; Z68.38 Body mass index [BMI] 38.0-38.9, adult | CPT/HCPCS: 99214 ==

== ENCOUNTER 2023-09-15 23:11 | Emergency (ER) | payer MEDICARE, MEDICAID, SELFPAY ==
[2023-09-15 23:18] VITALS: BP 126/99; PULSE 97; RESP 18; O2SAT 100; BMI 35.5
[2023-09-15 23:23] VITALS: TEMP 36.7
--- NOTE | 2023-09-16 00:03 | W.ED.ABDPA2 ---
HPI - Abdominal Pain General: Chief Complaint: Abdominal Pain Stated Complaint: Vaginal Bleeding Time Seen by Provider: 09/15/23 23:23 Source: patient Mode of arrival: ambulatory Limitations: no limitations History of Present Illness: 38-year-old female states that she has had diffuse abdominal pain throughout the day. She states she thought she is on her menstruation she has had some vaginal bleeding states she did have a positive home test. States the pain is sharp in nature rates it a 8 out of 10 denies any fever denies any vomiting or diarrhea denies any worsening proving factors. Associated Symptoms: Denies chills, diarrhea, dysuria, fever(s), nausea and vomiting Review of Systems Const: Denies: fever(s), chills, body aches or change in appetite Eyes: Denies: blurry vision or eye discomfort ENMT: Denies: throat pain or dental pain Card: Denies: chest pain Resp: Denies: dyspnea GI: Reports: abdominal pain; Denies: nausea, vomiting or diarrhea : Reports: vaginal bleeding; Denies: dysuria Musc: Denies: neck pain or back pain Skin/Breast: Denies: rash Neuro: Denies: headache(s) PFSH ED PFSH: Medical History BRCA positive She states that her when she got in touch with her step siblings she was told that her maternal grandmother had breast cancer in her mother had ovarian cancer. She had herself tested for BRCA and states that she is a carrier for BRCA-1. -She did have CA-125 and ultrasound and mammograms done. In 2020 she states that she did get records of her BRCA testing and she states that she is not really a carrier. Epilepsy Diagnosed as a teenager. She states that she is allergic to a lot of the seizure medication. States that her seizures are usually absent seizures. Denies any seizures since August 2018. She follows with neurology Dr. Sandoval in [facility] and sees him every 3 months. She is not on any medication at this time. Fibromyalgia Is on Lyrica managed by neurology Dr. Sandoval in [facility] Lupus Diagnosed in 2007 she takes prednisone as needed for flares. -She is currently taking Plaquenil and is following up with rheumatology Dr. Watkins in [facility] with visits every 3 months Major depressive disorder, recurrent severe without psychotic features No pertinent past medical history Denies diabetes, asthma, hypertension, DVT/PE PCP: [facility] Ramirez in [place], [place]. Psychiatric care Surgical History History of orthopedic surgery October 2019--resetting of left arm fracture and left rotator cuff surgery performed in [facility] S/P section x2 in 2006 and 2010 S/P cholecystectomy Laparoscopic cholecystectomy on 01/23/2017 in the period S/P tonsillectomy Performed at age 16 Status post surgery Surgery on the left arm for a fracture Status post surgery Left ankle surgery in March 2021, performed at [facility] Family History Mother Ovarian cancer diagnosed at age 46 Grandmother Hypertension maternal Heart disease maternal Breast cancer maternal grandmother, diagnosed in her 50s Daughter Heart disease Grandfather Brain cancer paternal Family/Other Adopted She is adopted and is not know most of her family history but got in contact with her one half brother and obtained some family history as documented Social History Smoking and tobacco/nicotine status: current some day tobacco/nicotine user cigarettes Alcohol intake: current (twice a year) Alcohol intake frequency: holidays/special occasions only Alcohol type: hard liquor Substance/Drug Use: current Substance/Drug use frequency: Special occassions/opportunity only Physical Exam Const: COMMON NORMALS: no acute distress, patient oriented x3 and healthy appearing HENMT: COMMON NORMALS: normocephalic and atraumatic HEAD & SCALP: normocephalic and atraumatic Eye: COMMON NORMALS: Equal, round and reactive pupils present and EOMs intact bilaterally PUPIL: Yes Equal, round and reactive pupils present Neck/C-Spine: COMMON NORMALS: full ROM and supple Chest: COMMONS NORMALS: normal inspection of the chest and normal palpation of entire chest wall Resp: COMMON NORMALS: normal respiratory effort, No retractions, No use of accessory muscles and clear to auscultation bilaterally AUSCULTATION: clear to auscultation bilaterally Cardio: COMMON NORMALS: regular rate, regular rhythm and No murmurs present (Cardio) RATE: regular rate RHYTHM: regular rhythm GI: COMMON NORMALS: Normal to inspection, nondistended, normoactive bowel sounds present, Soft to palpation and no masses PALPATION: Yes Soft to palpation OTHER: diffuse tenderness Extremity: COMMON NORMALS: normal to inspection and full ROM Neuro: COMMON NORMALS: patient oriented x3, moves all extremities and no focal motor deficits Psych: COMMON NORMALS: mental status grossly normal, Normal thought process present and cooperative THOUGHT PROCESS: Normal thought process present Skin: COMMON NORMALS: no rashes or lesions noted and no wounds GENERAL SKIN EXAM: no rashes or lesions noted Course Vital Signs: Vital signs: Vital Signs Temperature 98.1 F 09/15/23 23:23 Pulse Rate 83 09/16/23 04:34 Respiratory Rate 17 09/16/23 04:34 Blood Pressure 132/65 09/16/23 03:38 Pulse Oximetry 93 09/16/23 04:34 Oxygen Delivery Me thod Room Air 09/16/23 04:34 MDM - Abdominal Pain Medical Decision Making Patient presents with pelvic pain CT ultrasound showed a cystic structure in the right adnexa her pain is improved here she has no fever she does have a slightly elevated white count. I did speak to Dr. Perlita mancilla over the lab work and ultrasound with him. We will plan to treat for possible PID with doxycycline and Flagyl she is to follow-up with him outpatient as well in 3 to 5 days. I informed her if she has worsening pain or fever she is return immediately she understands and agrees to plan. Medical Records I reviewed the patient's medical records. Lab Data I reviewed the patient's lab results. 09/16/23 01:05 09/16/23 01:05 Labs/Radiology: Radiology Impressions Abdomen/Pelvis CT 09/16/23 01:25 IMPRESSION: 1. 4.2 x 4.2 cm, mildly complex low-attenuation lesion of the right adnexa. Consider evaluation with ultrasound or contrast-enhanced pelvic MRI. 2. Fatty infiltration of the liver. Pelvic/Transvag US 09/16/23 03:20 IMPRESSION: 1. 4 x 4.5 x 3.3 cm subserosal uterine fibroid. 2. 2.7 cm ill-defined cystic structure of the right ovary.Recommend 6-12 week follow-up to ensure resolution. If the cyst is unchanged, then hemorrhagic cyst is unlikely, and continued follow-up with either US or MR should then be considered. If these studies do not confirm an endometrioma or dermoid, then surgical evaluation should be considered. Laboratory Results WBC 18.69 10^3/uL (3.29-11.43) H 09/16/23 01:05 RBC 4.75 10^6/uL (3.85-5.65) 09/16/23 01:05 Hgb 11.80 g/dL (11.27-16.99) 09/16/23 01:05 Hct 38.1 % (36-47) 09/16/23 01:05 MCV 80.2 fl (85-98) L 09/16/23 01:05 MCH 24.8 pg (27-33) L 09/16/23 01:05 MCHC 31.0 g/dL (30-55) 09/16/23 01:05 RDW 16.9 % (12.1-15.1) H 09/16/23 01:05 Plt Count 534 10^3/cmm (157-399) H 09/16/23 01:05 MPV 8.7 fL (7.4-10.4) 09/16/23 01:05 Neut % (Auto) 87.1 % 09/16/23 01:05 Lymph % (Auto) 7.3 % 09/16/23 01:05 Glynn % (Auto) 4.9 % 09/16/23 01:05 Eos % (Auto) 0.2 % 09/16/23 01:05 Baso % (Auto) 0.2 % 09/16/23 01:05 Neut # (Auto) 16.28 10^3/uL (1.8-7.7) H 09/16/23 01:05 Lymph # (Auto) 1.4 10^3/uL (0.8-4.8) 09/16/23 01:05 Glynn # (Auto) 0.9 10^3/uL (0.2-0.9) 09/16/23 01:05 Eos # (Auto) 0.0 10^3/uL (0.0-0.8) 09/16/23 01:05 Baso # (Auto) 0.0 10^3/uL (0.0-0.1) 09/16/23 01:05 Nucleated RBC % (auto) 0 % 09/16/23 01:05 Nucleated RBCs # 0.0 /100WBC 09/16/23 01:05 Sodium 138 mmol/L (136-145) 09/16/23 01:05 Potassium 3.4 mmol/L (3.5-5.1) L 09/16/23 01:05 Chloride 101 mmol/L (98-107) 09/16/23 01:05 Carbon Dioxide 25 mmol/L (22-29) 09/16/23 01:05 Anion Gap 15.4 (5-19) 09/16/23 01:05 BUN 10 mg/dL (6-20) 09/16/23 01:05 Creatinine 0.8 mg/dL (0.5-0.9) 09/16/23 01:05 GFR Calculation 79.4 mL/min (90-130) L 09/16/23 01:05 Glucose 133 mg/dL (65-115) H 09/16/23 01:05 Calculated Osmolality 287 mOsm/kg (285-295) 09/16/23 01:05 Calcium 9.9 mg/dL (8.5-10.5) 09/16/23 01:05 Total Bilirubin 0.3 mg/dL (0.15-1.2) 09/16/23 01:05 AST 18 U/L (0-32) 09/16/23 01:05 ALT 27 U/L (0-33) 09/16/23 01:05 Alkaline Phosphatase 97 U/L (35-105) 09/16/23 01:05 Total Protein 7.6 g/dL (6.6-8.7) 09/16/23 01:05 Albumin 4.7 g/dL (3.5-5.2) 09/16/23 01:05 Globulin 2.9 g/dL (1.3-4.6) 09/16/23 01:05 HCG, Qual Negative (Negative) 09/16/23 01: Ser , Semi-Qnt 1.00 mIU/mL 09/16/23 01:05 Urine Color Red (Yellow) A 09/16/23: Urine Appearance Hazy (CLEAR) A 09/16/23: Urine pH 5 (5-7) 09/16/23:29 Ur Specific [place] 1.025 (1.005-1.030) 09/16/23 01:29 Urine Protein 3+ (Negative) H 09/16/23 01:29 Urine Glucose (UA) Norm (Normal) 09/16/23 01:29 Urine Ketones 1+ (Negative) H 09/16/23 01:29 Urine Blood 3+ (Negative) H 09/16/23 01:29 Urine Nitrate Negative (Negative) 09/16/23 01:29 Urine Bilirubin 1+ (Negative) H 09/16/23 01:29 Urine Urobilinogen Neg mg/dL (Negative) 09/16/23 01:29 Ur Leukocyte Esterase 2+ (Negative) H 09/16/23 01:29 Urine RBC 15-25 /hpf (0-2) H 09/16/23 01:29 Urine WBC 10-15 /hpf (0-5) H 09/16/23 01:29 Ur Squamous Epith Cells 0-4 /hpf (0-5) H 09/16/23 01:29 Amorphous Sediment Not Reportable 09/16/23 01:29 Urine Bacteria 2+ /hpf (NONE) H 09/16/23 01:29 Hyaline Casts 0-4 /lpf H 09/16/23 01:29 Urine Mucus 3+ /hpf 09/16/23 01:29 All radiology interpretation(s) finalized by discharge Discharge Plan Discharge Patient Disposition: Home Clinical Impression: Pelvic pain, Ovarian cyst Condition: Stable Prescriptions: New hydrocodone-acetaminophen 5-325 mg tablet 1 tab PO Q6H PRN (Reason: pain) Qty: 14 0RF ondansetron 4 mg tablet,disintegrating 4 mg PO Q6H PRN (Reason: nausea and vomiting) Qty: 14 0RF doxycycline hyclate 100 mg tablet 100 mg PO BID 14 Days Qty: 28 0RF metronidazole 500 mg tablet 500 mg PO BID 14 Days Qty: 28 0RF No Action potassium bicarb and chloride 20 mEq packet 1 packet PO TID pantoprazole 20 mg tablet,delayed release (DR/EC) 20 mg PO BID pregabalin [Lyrica] 100 mg capsule 100 mg PO QDAY colchicine (gout) 0.6 mg capsule 0.6 mg PO BID hydroxychloroquine [Plaquenil] 200 mg tablet 200 mg PO BID acetaminophen [Tylenol Extra Strength] 500 mg tablet 1,000 mg PO TID PRN (Reason: Pain) cyclobenzaprine 10 mg tablet 10 mg PO BID PRN (Reason: muscle spasm) Vyvanse 40 mg capsule 40 mg PO BID 30 Days Qty: 60 0RF sertraline [Zoloft] 50 mg tablet 50 mg PO DAILY Qty: 30 1RF aripiprazole 5 mg tablet See Rx Instructions .ROUTE .COMPLEX Qty: 30 2RF Dose Instruction: TAKE ONE TABLET BY MOUTH DAILY Rx Instructions: TAKE ONE TABLET BY MOUTH DAILY nicotine 14 mg/24 hr patch 24 hour 1 patch transdermal DAILY Qty: 28 0RF alprazolam 0.5 mg tablet 0.5 mg PO TID PRN (Reason: anxiety) Qty: 90 2RF metformin 500 mg tablet extended release 24 hr See Rx Instructions .ROUTE .COMPLEX Qty: 360 0RF Dose Instruction: TAKE TWO TABLETS BY MOUTH TWICE DAILY Rx Instructions: TAKE TWO TABLETS BY MOUTH TWICE DAILY aspirin 325 mg Tablet 325 mg PO Q4H PRN (Reason: Pain) Rx Instructions: PT TOOK 2 TAB THIS MORNING. Multiple Vitamin, Womens Tablet 1 tab PO DAILY naproxen 500 mg tablet 500 mg PO DAILY PRN (Reason: pain) Qty: 30 0RF Discharge Orders: Discharge ED (Routine); Ordered 09/16/23 Ordered By: Tejal Morejon Referrals: Ozzie Baca MD [Physician] - 1-3 days ANNALISA CHILEL APRN [Primary Care Provider] - Discharge Diet: Advance as tolerated Discharge Activity: Resume usual activity Patient Instructions: Ovarian Cyst (ED), Opioid Safety Coding Level of Care Code ED Ear Nose Throat Physician for Boogie Edwards
[2023-09-16 00:56] VITALS: RESP 18
[2023-09-16] MEDS: ondansetron 2 mg/ML SDV 2 mL 4 MG IVP ×2 (00:56→03:25)
[2023-09-16] MEDS: HYDROmorphone 1 mg/mL INJ 1 mL IVP ×2 (00:56→03:31)
[2023-09-16 01:09] VITALS: BP 130/69; PULSE 87; O2SAT 95
[2023-09-16 01:16] LABS: Basophils % 0.2 %; Eosinophils % 0.2 %; Hematocrit 38.1 % (36-47); Lymphocytes # 1.4 10^3/uL (0.8-4.8); Lymphocytes % 7.3 %; Mean Corpuscular Hemoglobin 24.8 pg (27-33); Mean Corpuscular Volume 80.2 fl (85-98); Mean Platelet Volume 8.7 fL (7.4-10.4); Monocytes # 0.9 10^3/uL (0.2-0.9); Monocytes % 4.9 %; Neutrophils # 16.28 10^3/uL (1.8-7.7); Neutrophils % 87.1 %; Nucleated Red Blood Cells % 0 %; Platelet Count 534 10^3/cmm (157-399); Red Blood Count 4.75 10^6/uL (3.85-5.65); Red Cell Distribution Width 16.9 % (12.1-15.1); White Blood Count 18.69 10^3/uL (3.29-11.43)
[2023-09-16 01:23] LABS: HCG, Serum Qual Negative (Negative)
--- NOTE | 2023-09-16 01:25 | CTR_ITS ---
PROCEDURE INFORMATION: Exam: CT Abdomen And Pelvis With Contrast Exam date and time: 09/16/2023 2:14 AM Age: 38 years old Clinical indication: Abdominal pain; Other: Umbilical; Prior surgery; Surgery date: 6+ months; Surgery type: Gb/2csections/liver flush after gb surgery/stent for kidney stone; Patient HX: Vaginal bleeding; Additional info: Abd pain TECHNIQUE: Imaging protocol: Computed tomography of the abdomen and pelvis with contrast. Radiation optimization: All CT scans at this facility use at least one of these dose optimization techniques: automated exposure control; mA and/or kV adjustment per patient size (includes targeted exams where dose is matched to clinical indication); or iterative reconstruction. Contrast material: [id number]; Contrast volume: 100 ml; Contrast route: INTRAVENOUS (IV); REPORTING DATA: Count of CT and Cardiac NM exams in prior 12 months: This patient has received [address] and 0 known cardiac nuclear medicine studies in the 12 months prior to the current study. COMPARISON: CT kidney stone [id number] 04/09/2022 10:11 AM RADIATION DOSE METRICS: Total DLP (mGy-cm): 1117.81 FINDINGS: Lungs: Calcified pulmonary nodule/nodules, consistent with prior granulomatous disease. Liver: There is fatty infiltration of the liver. Gallbladder and bile ducts: There has been a cholecystectomy. Pancreas: Normal. No ductal dilation. Spleen: Normal. No splenomegaly. Adrenal glands: Normal. No mass. Kidneys and ureters: Normal. No hydronephrosis. Stomach and bowel: Unremarkable. No obstruction. No mucosal thickening. Appendix: No evidence of appendicitis. Intraperitoneal space: Unremarkable. No free air. No significant fluid collection. Vasculature: Unremarkable. No abdominal aortic aneurysm. Lymph nodes: Unremarkable. No enlarged lymph nodes. Urinary bladder: Unremarkable as visualized. Reproductive: 4.2 x 4.2 cm, mildly complex low-attenuation lesion of the right adnexa. Bones/joints: Unremarkable. No acute fracture. Soft tissues: Unremarkable. CT/CT abdomen pelvis w con* [id number] IMPRESSION: 1. 4.2 x 4.2 cm, mildly complex low-attenuation lesion of the right adnexa. Consider evaluation with ultrasound or contrast-enhanced pelvic MRI. 2. Fatty infiltration of the liver.
[2023-09-16 01:32] LABS: Alanine Aminotransferase 27 U/L (0-33); Albumin Level 4.7 g/dL (3.5-5.2); Alkaline Phosphatase 97 U/L (35-105); Anion Gap 15.4 (5-19); Aspartate Amino Transferase 18 U/L (0-32); Blood Urea Nitrogen 10 mg/dL (6-20); Calcium 9.9 mg/dL (8.5-10.5); Carbon Dioxide 25 mmol/L (22-29); Chloride 101 mmol/L (98-107); Globulin 2.9 g/dL (1.3-4.6); Glomerular Filtration Rate 79.4 mL/min (90-130); Glucose 133 mg/dL (65-115); Osmolality Calculated 287 mOsm/kg (285-295); Potassium 3.4 mmol/L (3.5-5.1); Sodium 138 mmol/L (136-145); Total Bilirubin 0.3 mg/dL (0.15-1.2); Total Protein 7.6 g/dL (6.6-8.7)
[2023-09-16 02:21] LABS: Add Urine Microscopic? YES; Bilirubin Urine 1+ (Negative); Blood Urine 3+ (Negative); Glucose Urine UA Norm (Normal); Ketones Urine 1+ (Negative); Leukocyte Esterase Urine 2+ (Negative); Nitrate Urine Negative (Negative); Protein Urine 3+ (Negative); Specific Gravity, Urine 1.025 (1.005-1.030); Urine Appearance Hazy (CLEAR); Urine Color Red (Yellow); Urobilinogen Urine Neg (Negative); pH Urine 5 (5-7)
[2023-09-16] MEDS: iohexol 350 mg/mL 500 mL Btl (per mL) IV (02:21)
[2023-09-16 02:22] LABS: Add Urine Culture? Yes; Bacteria Urine 2+ /hpf; Hyaline Casts Urine 0-4 /lpf; Mucus Urine 3+ /hpf; RBC Urine 15-25 /hpf (0-2); Squamous Epithelial Cell Urine 0-4 /hpf (0-5)
--- NOTE | 2023-09-16 03:20 | USR_ITS ---
PROCEDURE INFORMATION: Exam: US Pelvis Complete, Transabdominal and US Pelvis, Transvaginal Exam date and time: 09/16/2023 3:33 AM Age: 38 years old Clinical indication: Patient HX: G6-p4-a2-l4 with diffuse pelvic pain x 8 hours. F/u CT = 4 cm RT adnexal mass; Additional info: Abd pain/mass LABS AND CLINICAL REPORTS: Serum Choriogonadotropin (HCG): 1 mIU/mL Last menstrual period start date: 09/15/2023 TECHNIQUE: Imaging protocol: Real-time complete transabdominal and transvaginal pelvic ultrasound with image documentation. Transvaginal imaging was used for better evaluation of the endometrium, adnexa, and/or cervix. COMPARISON: CT abdomen pelvis w con* [id number] 09/16/2023 2:14 AM FINDINGS: Uterus: Uterus measures 10.5 cm x 7.3 cm x 6.1 cm. 4 x 4.5 x 3.3 cm subserosal uterine fibroid. Right ovary/adnexa: Right ovary measures 4.5 cm x 3.8 cm x 3.3 cm. Right ovarian volume is 29.3 mL. Right ovary demonstrates normal blood flow and measures 4.5 x 3.8 x 3.3 cm. 2.7 cm ill-defined cystic structure of the right ovary. Left ovary/adnexa: Left ovary measures 2.6 cm x 2 cm x 1.5 cm. Left ovarian volume is 4.2 mL. Left ovary demonstrates normal blood flow and measures 2.6 x 2 x 1.5 cm. Intraperitoneal space: No intraperitoneal fluid. Urinary bladder: Normal. US/US pelv w/transvag [id number] IMPRESSION: 1. 4 x 4.5 x 3.3 cm subserosal uterine fibroid. 2. 2.7 cm ill-defined cystic structure of the right ovary.Recommend 6-12 week follow-up to ensure resolution. If the cyst is unchanged, then hemorrhagic cyst is unlikely, and continued follow-up with either US or MR should then be considered. If these studies do not confirm an endometrioma or dermoid, then surgical evaluation should be considered.
[2023-09-16 03:31] VITALS: RESP 18; O2SAT 95
[2023-09-16 03:38] VITALS: BP 132/65; PULSE 86; O2SAT 94
--- NOTE | 2023-09-16 04:01 | PC.NURSE ---
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
[2023-09-16 04:34] VITALS: PULSE 83; RESP 17; O2SAT 93
[2023-09-16] MEDS: cefTRIAXone 1,000 MG in water for injection-sterile 2.1 ML 2 MG IM (05:10)
[2023-09-16 05:52] VITALS: BP 134/84; PULSE 72; O2SAT 94
--- NOTE | 2023-09-16 07:51 | DCPLANNER ---
Referral was sent to Dr. Pulido office on 09/16/23 at 0751 am. Clinic to contact patient.
== END 2023-09-16 05:55 | disposition home or self-care (01) ==
PROVIDERS: Emergency Provider Emergency Medicine; PCP Nurse Practitioner Family
DX: R10.2 Pelvic and perineal pain (principal); N83.201 Unspecified ovarian cyst, right side; F17.210 Nicotine dependence, cigarettes, uncomplicated; M32.9 Systemic lupus erythematosus, unspecified
CPT/HCPCS: 74177; 76830; 76856; 76857; 80053; 81001; 84702; 84703; 85025; 87086; 96372; 96374; 96375; 96376; 99285; J0696; J1170; J2405; Q9967

== ENCOUNTER 2024-01-10 08:25 | Oncology outpatient (recurring) (ONCR) | payer MEDICARE, MEDICAID, SELFPAY ==
[2024-01-10 08:38] VITALS: BP 165/89; PULSE 97; RESP 16; TEMP 36.5; O2SAT 98
[2024-01-10] MEDS: acetaminophen 325 mg Tablet 650 MG PO (10:04)
[2024-01-10] MEDS: sodium chloride 0.9% 500 ML 75 ML IV (10:04)
[2024-01-10] MEDS: diphenhydrAMINE 50 mg/mL SDV 1mL 25 MG IVP (10:05)
[2024-01-10] MEDS: iron dextran 25 MG in SYRINGE 1 EACH 30 MG IVP (10:28)
[2024-01-10] MEDS: iron dextran 975 MG in sodium chloride 0.9% 1,000 ML 250.75 MG IV (11:37)
== END 2024-01-13 23:59 | disposition home or self-care (01) ==
PROVIDERS: PCP Nurse Practitioner Family; Visit Provider Internal Medicine Hematology
DX: D50.9 Iron deficiency anemia, unspecified (principal)
CPT/HCPCS: 96365; 96366; 96375; J1200; J1750; J7030; J7040

== ENCOUNTER → 2024-05-30 08:42 | Outpatient (BNVA) | payer MEDICARE, SELFPAY | PROVIDERS: PCP Nurse Practitioner Family; Visit Provider Internal Medicine | DX: N20.0 Calculus of kidney (principal); E21.3 Hyperparathyroidism, unspecified; E55.9 Vitamin D deficiency, unspecified; R63.5 Abnormal weight gain; E28.2 Polycystic ovarian syndrome; Z79.84 Long term (current) use of oral hypoglycemic drugs; Z68.37 Body mass index [BMI] 37.0-37.9, adult | CPT/HCPCS: 99214 ==

== ENCOUNTER 2024-06-29 11:09 | Oncology outpatient (recurring) (ONCR) | payer MEDICARE, MEDICAID, OTHER, SELFPAY ==
[2024-06-29 11:58] VITALS: BP 123/86; PULSE 84; RESP 17; TEMP 36.8; O2SAT 96
[2024-06-29] MEDS: acetaminophen 325 mg Tablet 650 MG PO (12:01)
[2024-06-29] MEDS: sodium chloride 0.9% 500 ML 75 ML IV (12:03)
[2024-06-29] MEDS: diphenhydrAMINE 50 mg/mL SDV 1mL 25 MG IVP (12:25)
[2024-06-29] MEDS: iron dextran 25 MG in SYRINGE 1 EACH 30 MG IVP (12:40)
[2024-06-29 12:55] VITALS: BP 123/85; PULSE 76; RESP 17; TEMP 36.8; O2SAT 96
[2024-06-29 13:10] VITALS: BP 116/81; PULSE 75; RESP 16; TEMP 36.7; O2SAT 97
[2024-06-29 13:25] VITALS: BP 129/82; PULSE 79; RESP 16; TEMP 36.6; O2SAT 97
[2024-06-29] MEDS: iron dextran 975 MG in sodium chloride 0.9% 1,000 ML 275 MG IV (13:45)
[2024-06-29 13:53] VITALS: BP 126/63; PULSE 77; RESP 18; TEMP 36.1; O2SAT 97
[2024-06-29 17:34] VITALS: BP 127/82; PULSE 69; RESP 18; TEMP 36.2; O2SAT 97
== END 2024-07-15 23:59 | disposition home or self-care (01) ==
LOC: ONCMED 11:09
PROVIDERS: PCP Nurse Practitioner Family; Visit Provider Internal Medicine Hematology
DX: Z79.899 Other long term (current) drug therapy (principal); D50.9 Iron deficiency anemia, unspecified
CPT/HCPCS: 96365; 96366; 96375; J1200; J1750; J7030; J7040

== ENCOUNTER 2024-08-24 13:11 | Emergency (ER) | payer MEDICARE, MEDICAID, SELFPAY ==
[2024-08-24] VITALS (7 sets, daily range): BP systolic 119–149; BP diastolic 75–97; PULSE 72–98; RESP 16; TEMP 36.8; O2SAT 93–98; BMI 37.8
--- NOTE | 2024-08-24 17:10 | CTR_ITS ---
PROCEDURE INFORMATION: Exam: CT Abdomen And Pelvis With Contrast Exam date and time: 08/24/2024 6:40 PM Age: 39 years old Clinical indication: Abdominal pain; Additional info: Rlq pain, recent laparoscopic surgery TECHNIQUE: Imaging protocol: Computed tomography of the abdomen and pelvis with contrast. Sagittal and coronal reformatted images were created and reviewed. Radiation optimization: All CT scans at this facility use at least one of these dose optimization techniques: automated exposure control; mA and/or kV adjustment per patient size (includes targeted exams where dose is matched to clinical indication); or iterative reconstruction. Contrast material: OMNI 350; Contrast volume: 100 ml; Contrast route: INTRAVENOUS (IV); COMPARISON: CT abdomen pelvis w con* [id number] 09/16/2023 2:14 AM RADIATION DOSE METRICS: Total DLP (mGy-cm): 1162 FINDINGS: Lungs: Visualized lungs are clear. Pleural spaces: No pleural effusion. Heart: Visualized portions of the heart are unremarkable. Liver: Diffuse, moderately decreased density in the liver. Findings are stable and consistent with moderate fatty infiltration. Gallbladder and biliary ducts: Stable findings consistent with a previous cholecystectomy. No biliary ductal dilatation. Pancreas: The pancreas is unremarkable. No pancreatic ductal dilatation. Spleen: The spleen is unremarkable. Adrenal glands: The right and left adrenal glands are unremarkable. Kidneys and ureters: The right and left kidneys are unremarkable. The right and left ureters are unremarkable. Stomach and bowel: No obstruction. No mucosal thickening. Appendix: The appendix is visualized and is unremarkable. No findings to suggest acute appendicitis. Intraperitoneal space: No free intraperitoneal air. No ascites. Also see under reproductive . Vasculature: No evidence for aortic aneurysm or aortic dissection. Hepatic veins, portal veins, splenic vein, and SMV are patent. Lymph nodes: No lymphadenopathy. Urinary bladder: The bladder is unremarkable for the degree of distension. Reproductive: The uterus is unremarkable. Enlarged right ovary measuring 5.5 x 8.3 cm, previously measured 4.0 x 5.0 cm (series 3, image 69). Multiple cystic foci in the right ovary have also increased in size, the largest now measures 4.8 x 4.6 cm, previously measured 3.4 x 3.5 cm (series 3, image 72). The left ovary measures 4.9 x 3.7 cm, previously measured 2.7 x 2.6 cm (series 3, image 70). Interval development of a new left ovarian cystic focus measuring 2.9 x 3.3 cm (series 3, image 71). There are dilated tubular structures in the right and left adnexa suspicious for hydrosalpinx versus pyosalpinx. Mild inflammatory changes in the pelvis, mildly worsened compared with the previous study. Bones/joints: Degenerative changes in the spine and hips. Soft tissues: No acute abnormality in the extra-abdominal soft tissues. CT/CT abdomen pelvis w con* [id number] IMPRESSION: 1. The ovaries have increased in size, the right ovary is larger than the left. Enlarging cystic foci in the right ovary with development of a new left ovarian cystic focus. Dilated fallopian tubes with inflammatory changes in the pelvis, possible tubo-ovarian abscesses cannot be ruled out. The findings could also represent bilateral hydrosalpinx with ovarian cysts. Recommend clinical correlation. Pelvic ultrasound may be obtained for further evaluation if it will change clinical management. 2. Stable moderate fatty infiltration of the liver. Comments:THIS REPORT CONTAINS FINDINGS THAT MAY BE CRITICAL TO PATIENT CARE. The findings were verbally communicated via telephone conference with MILIND THURSTON at 8:09 PM CDT on 08/24/2024. The findings were acknowledged and understood.
[2024-08-24 17:33] LABS: Bilirubin Urine Negative (Negative); Blood Urine 3+ (Negative); Glucose Urine UA Negative (Normal); Ketones Urine Negative (Negative); Leukocyte Esterase Urine 1+ (Negative); Nitrate Urine Negative (Negative); Protein Urine Negative (Negative); Specific Gravity, Urine 1.006 (1.005-1.030); Urine Appearance Clear (CLEAR); Urine Color Yellow (Yellow); Urobilinogen Urine 0.2 mg/dL (Negative)
[2024-08-24 17:38] LABS: Add Urine Microscopic? YES; Bacteria Urine None Seen /hpf; Hyaline Casts Urine 0-4 /lpf; Squamous Epithelial Cell Urine 0-5 /hpf (0-5)
--- NOTE | 2024-08-24 17:41 | W.ED.ABDPA2 ---
HPI - Abdominal Pain General: Chief Complaint: Abdominal Pain Stated Complaint: abd pain Time Seen by Provider: 08/24/24 16:44 Source: patient Mode of arrival: ambulatory Limitations: no limitations History of Present Illness: Patient is a 39-year-old female presenting to the emergency department complaining of lower abdominal pain onset today. States that at the beginning of the month she had a laparoscopic procedure done where she was diagnosed with endometriosis, currently has a bigger procedure scheduled for October as they found it all the way up to my diaphragm. She is also noting onset of nausea due to the pain, states that today it has been a 10/10 and is an 8/10 at this time. She notes that after the procedure she was great and hiked and was active, and that this just started today. She also notes she recently had her period as normal, she is not reporting any vaginal bleeding or discharge at this time. She does still have her appendix and gallbladder. She notes that the pain is worse on the right lower quadrant, though feels it in the left lower quadrant as well. She compares it to pain of a kidney stone, though is not reporting any urinary symptoms. She is denying any back pain, chest pain, shortness of breath, fevers, or other symptoms at this time. MD elicited complaint: abdominal pain Pertinent past history: other (Recently diagnosed endometriosis) Onset (ago): hour(s) Pain Consistency: constant Location: RLQ and LLQ Severity: severe Pain scale (0-10): 10 Associated Symptoms: Reports nausea; Denies bloating, change in stool character, chills, constipation, diarrhea, dysuria, fever(s), hematochezia and vomiting Related Data Date of Last Menstrual Period: 08/18/24 Home Medications Medication Instructions Recorded Confirmed acetaminophen 500 mg tablet 1,000 mg PO TID PRN Pain 11/29/19 08/15/24 (Tylenol Extra Strength) cyclobenzaprine 10 mg tablet 10 mg PO BID PRN muscle spasm 11/29/19 08/15/24 hydroxychloroquine 200 mg tablet 200 mg PO BID 11/29/19 08/15/24 (Plaquenil) colchicine 0.6 mg capsule 0.6 mg PO BID 11/30/19 08/15/24 pregabalin 100 mg capsule (Lyrica) 100 mg PO QDAY 11/30/19 08/15/24 aspirin 325 mg tablet 325 mg PO Q4H PRN Pain 09/19/20 08/15/24 nmqziiqjtzda-Hz-ruse-minerals 1 tab PO DAILY 09/19/20 08/15/24 (Multiple Vitamin, Womens tablet) potassium bicarbonate and chloride 1 packet PO TID 08/06/21 08/15/24 20 mEq oral packet pantoprazole 20 mg tablet,delayed 20 mg PO BID 08/03/22 08/15/24 release Previous Rx's Medication Instructions Recorded naproxen 500 mg tablet 500 mg PO DAILY PRN pain #30 tabs 09/19/20 ondansetron 4 mg disintegrating 4 mg PO Q6H PRN nausea and 09/16/23 tablet vomiting #14 tabs metformin 500 mg tablet,extended See Rx Instructions .Route 04/28/24 release 24 hr .COMPLEX #360 tabs ramelteon 8 mg tablet (Rozerem) 8 mg PO .HS #30 tabs 05/09/24 alprazolam 0.5 mg tablet 0.5 mg PO TID PRN anxiety #30 tabs 07/07/24 aripiprazole 5 mg tablet See Rx Instructions .Route 07/07/24 .COMPLEX #30 tabs venlafaxine 150 mg 150 mg PO DAILY #30 caps 07/12/24 capsule,extended release 24 hr (Effexor XR) lisdexamfetamine 40 mg capsule 40 mg PO QAM 30 days #30 caps 07/24/24 hydrocodone 7.5 mg-acetaminophen 1 tab PO Q8H PRN pain #15 tabs 08/24/24 325 mg tablet ondansetron HCl 4 mg tablet 4 mg PO Q8H #30 tabs 08/24/24 Allergies Allergy/AdvReac Type Severity Reaction Status Date / Time levetiracetam [From Keppra] Allergy Hives Verified 08/15/24 13:04 varenicline [From Chantix] AdvReac Severe ADR-Anxiety Verified 08/15/24 13:04 divalproex sodium AdvReac hallucinati Verified 08/15/24 13:04 [From Depakote] ons gabapentin AdvReac Makes me Verified 08/15/24 13:04 hyper oxcarbazepine AdvReac Liver Verified 08/15/24 13:04 [From Trileptal] complications Review of Systems General: Reports: 10 or more systems reviewed and unremarkable except in HPI and below Const: Denies: fever(s), chills, change in appetite, change in weight or diaphoresis ENMT: Denies: throat pain or hoarseness Card: Denies: chest pain, palpitations or lightheadedness Resp: Denies: dyspnea, productive cough or wheezing GI: Reports: abdominal pain and nausea; Denies: vomiting, diarrhea, constipation, bloating, change in stool character or hematochezia : Denies: flank pain, difficulty voiding, dysuria, urinary frequency or urinary urgency Musc: Denies: neck pain or back pain Skin/Breast: Denies: rash or new lesions Neuro: Denies: headache(s) or dizziness PFSH ED PFSH: Medical History Psychiatric care No pertinent past medical history Denies diabetes, asthma, hypertension, DVT/PE PCP: [facility] Ramirez in [place], [place]. BRCA positive She states that her when she got in touch with her step siblings she was told that her maternal grandmother had breast cancer in her mother had ovarian cancer. She had herself tested for BRCA and states that she is a carrier for BRCA-1. -She did have CA-125 and ultrasound and mammograms done. In 2020 she states that she did get records of her BRCA testing and she states that she is not really a carrier. Lupus Diagnosed in 2007 she takes prednisone as needed for flares. -She is currently taking Plaquenil and is following up with rheumatology Dr. Watkins in [facility] with visits every 3 months Fibromyalgia Is on Lyrica managed by neurology Dr. Sandoval in [facility] Epilepsy Diagnosed as a teenager. She states that she is allergic to a lot of the seizure medication. States that her seizures are usually absent seizures. Denies any seizures since August 2018. She follows with neurology Dr. Sandoval in [facility] and sees him every 3 months. She is not on any medication at this time. Major depressive disorder, recurrent severe without psychotic features Surgical History History of orthopedic surgery October 2019--resetting of left arm fracture and left rotator cuff surgery performed in [facility] S/P cholecystectomy Laparoscopic cholecystectomy on 01/23/2017 in the period S/P tonsillectomy Performed at age 16 Status post surgery Left ankle surgery in March 2021, performed at [facility] in [place] Status post surgery Surgery on the left arm for a fracture S/P section x2 in 2006 and 2010 Family History Mother Ovarian cancer diagnosed at age 46 Grandmother Hypertension maternal Heart disease maternal Breast cancer maternal grandmother, diagnosed in her 50s Daughter Heart disease Grandfather Brain cancer paternal Family/Other Adopted She is adopted and is not know most of her family history but got in contact with her one half brother and obtained some family history as documented Social History Smoking and tobacco/nicotine status: never used tobacco/nicotine Alcohol intake: current (twice a year) Alcohol intake frequency: holidays/special occasions only Alcohol type: hard liquor Substance/Drug Use: current Substance/Drug use frequency: Special occassions/opportunity only Female Reproductive History: Date of last menstrual period: 08/18/24 Physical Exam Const: COMMON NORMALS: patient oriented x3, no limitations, healthy appearing, alert and well nourished GENERAL APPEARANCE: cooperative NUTRITIONAL APPEARANCE: obese ORIENTATION/CONSCIOUSNESS: Yes awake OTHER: Appears somewhat uncomfortable in ER bed HENMT: COMMON NORMALS: normocephalic, atraumatic, hearing grossly normal bilaterally, external ears normal, Normal external nose present, Normal nasal mucous membranes and turbinates present and moist oral mucous membranes HEAD & SCALP: normocephalic and atraumatic NOSE: Normal external nose present and Normal nasal mucous membranes and turbinates present EXTERNAL EAR: Yes external ears normal Eye: COMMON NORMALS: Equal, round and reactive pupils present, EOMs intact bilaterally, conjunctivae normal and normal visual lawson by confrontation CONJUNCTIVA: Yes conjunctivae normal PUPIL: Yes Equal, round and reactive pupils present Neck/C-Spine: COMMON NORMALS: full ROM, supple, no meningeal signs and no JVD Resp: COMMON NORMALS: normal respiratory effort, No retractions, No use of accessory muscles and clear to auscultation bilaterally AUSCULTATION: clear to auscultation bilaterally, no crackles, no rales, no rhonchi and no wheezes Cardio: COMMON NORMALS: no JVD, regular rate, regular rhythm, S1 normal heart sound present, S2 normal heart sound present, No gallops present (Cardio), No clicks present (Cardio), No murmurs present (Cardio), No rub (Cardio) and Peripheral pulses 2+ throughout RATE: regular rate RHYTHM: regular rhythm HEART SOUNDS: S1 normal heart sound present and S2 normal heart sound present PERIPHERAL PULSES: Peripheral pulses 2+ throughout GI: COMMON NORMALS: Normal to inspection, nondistended, normoactive bowel sounds present, No hepatosplenomegaly present and no masses INSPECTION: Yes central obesity and Yes striae AUSCULTATION: Yes normoactive bowel sounds PALPATION: Yes Firmness to palpation present (GI), No Guarding due to palpation present (GI), No Rigid due to palpation and Yes No hepatosplenomegaly present RECTAL EXAM: deferred OTHER: She is endorsing diffuse abdominal tenderness to light palpation, worse in the bilateral lower quadrants. Her laparoscopic incision scars are well-healed without acute complication. : COMMON NORMALS: Yes no CVA tenderness BLADDER/KIDNEY EXAM: Yes no CVA tenderness Back/Pelvis: COMMON NORMALS: no CVA tenderness Extremity: COMMON NORMALS: normal to inspection and full ROM Neuro: COMMON NORMALS: patient oriented x3, moves all extremities, no focal motor deficits and no sensory deficits noted SENSORIUM/ORIENTATION: Yes alert MENINGEAL SIGNS: Yes no meningeal signs Psych: COMMON NORMALS: mental status grossly normal, cooperative and speech normal SPEECH: Yes normal speech Skin: COMMON NORMALS: no rashes or lesions noted GENERAL SKIN EXAM: no rashes or lesions noted Course Vital Signs: Vital signs: Vital Signs Temperature 98.3 F 08/24/24 13:16 Pulse Rate 72 08/24/24 22:20 Respiratory Rate 16 08/24/24 22:20 Blood Pressure 129/75 08/24/24 22:20 Pulse Oximetry 93 08/24/24 22:20 Oxygen Delivery Me thod Room Air 08/24/24 22:00 MDM - Abdominal Pain Medical Decision Making Patient presented with right lower quadrant pain evolving over the past week or so, recently underwent laparoscopic procedure for endometrial biopsy. She states she has an appointment in October to have a total hysterectomy as she had endometriosis up to her diaphragm. Still had her appendix and gallbladder. CT showed very enlarged right ovary, this was compared to a CT from last year, V jasmeet had called stating that there did not appear to be any signs of a tubo-ovarian abscess however could not fully be ruled out. Otherwise her appendix and the rest of her abdominal viscera are unremarkable. Recommended was an ultrasound transvaginally, which did show evidence of significant endometriomas, of which patient is aware of and states this is reason for hysterectomy. Per this history and imaging findings, this does not appear to be an acute issue and patient does have plan in the next couple of months to have this removed. She notes significant improvement after receiving morphine and nausea medications here in the emergency department, we will do pain control for her at home until she follows up with her HYDRAULIC MECHANIC early next week for general reevaluation. Her vitals have remained stable throughout the ED course, and her lab work altogether was unremarkable. Reasons to return were discussed thoroughly. I did discuss this patient with Dr. Rico. Lab Data 08/24/24 17:54 08/24/24 17:54 Labs/Radiology: Radiology Impressions Abdomen/Pelvis CT 08/24/24 17:10 IMPRESSION: 1. The ovaries have increased in size, the right ovary is larger than the left. Enlarging cystic foci in the right ovary with development of a new left ovarian cystic focus. Dilated fallopian tubes with inflammatory changes in the pelvis, possible tubo-ovarian abscesses cannot be ruled out. The findings could also represent bilateral hydrosalpinx with ovarian cysts. Recommend clinical correlation. Pelvic ultrasound may be obtained for further evaluation if it will change clinical management. 2. Stable moderate fatty infiltration of the liver. Comments:THIS REPORT CONTAINS FINDINGS THAT MAY BE CRITICAL TO PATIENT CARE. The findings were verbally communicated via telephone conference with MILIND THURSTON at 8:09 PM CDT on 08/24/2024. The findings were acknowledged and understood. Transvaginal US 08/24/24 20:08 IMPRESSION: 1. Markedly enlarged right ovary and enlarged left ovary. Complex cysts in both ovaries suggestive of endometriomas. 2. Findings suggesting adenomyosis in the uterus with a focal intrauterine leiomyoma. Limited visualization of the endometrium. 3. No evidence for hydrosalpinx on ultrasound. ADDENDUM: 08/24/242151 Urgent results were discussed with MILNID THURSTON on 08/24/2024 at 9:48 PM CDT. Laboratory Results WBC 8.31 10^3/uL (3.29-11.43) 08/24/24 17:54 RBC 4.41 10^6/uL (3.85-5.65) 08/24/24 17:54 Hgb 13.50 g/dL (11.27-16.99) 08/24/24 17:54 Hct 40.3 % (36-47) 08/24/24 17:54 MCV 91.4 fl (85-98) 08/24/24 17:54 MCH 30.6 pg (27-33) 08/24/24 17:54 MCHC 33.5 g/dL (30-55) 08/24/24 17:54 RDW 13.9 % (12.1-15.1) 08/24/24 17:54 Plt Count 462 10^3/cmm (157-399) H 08/24/24 17:54 MPV 8.7 fL (7.4-10.4) 08/24/24 17:54 Neut % (Auto) 55.7 % 08/24/24 17:54 Lymph % (Auto) 33.2 % 08/24/24 17:54 Mcleod % (Auto) 7.7 % 08/24/24 17:54 Eos % (Auto) 2.3 % 08/24/24 17:54 Baso % (Auto) 0.6 % 08/24/24 17:54 Neut # (Auto) 4.63 10^3/uL (1.8-7.7) 08/24/24 17:54 Lymph # (Auto) 2.8 10^3/uL (0.8-4.8) 08/24/24 17:54 Mcleod # (Auto) 0.6 10^3/uL (0.2-0.9) 08/24/24 17:54 Eos # (Auto) 0.2 10^3/uL (0.0-0.8) 08/24/24 17:54 Baso # (Auto) 0.1 10^3/uL (0.0-0.1) 08/24/24 17:54 Nucleated RBC % (auto) 0 % 08/24/24 17:54 Nucleated RBCs # 0.0 /100WBC 08/24/24 17:54 Sodium 139 mmol/L (136-145) 08/24/24 17:54 Potassium 3.9 mmol/L (3.5-5.1) 08/24/24 17:54 Chloride 103 mmol/L (98-107) 08/24/24 17:54 Carbon Dioxide 26 mmol/L (22-29) 08/24/24 17:54 Anion Gap 13.9 (5-19) 08/24/24 17:54 BUN 5 mg/dL (6-20) L 08/24/24 17:54 Creatinine 0.6 mg/dL (0.5-0.9) 08/24/24 17:54 GFR Calculation 110.2 mL/min (90-130) 08/24/24 17:54 Glucose 90 mg/dL (65-115) 08/24/24 17:54 Calculated Osmolality 285 mOsm/kg (285-295) 08/24/24 17:54 Calcium 9.1 mg/dL (8.5-10.5) 08/24/24 17:54 Total Bilirubin 0.2 mg/dL (0.15-1.2) 08/24/24 17:54 AST 16 U/L (0-32) 08/24/24 17:54 ALT 26 U/L (0-33) 08/24/24 17:54 Alkaline Phosphatase 89 U/L (35-105) 08/24/24 17:54 Total Protein 6.9 g/dL (6.6-8.7) 08/24/24 17:54 Albumin 4.3 g/dL (3.5-5.2) 08/24/24 17:54 Globulin 2.6 g/dL (1.3-4.6) 08/24/24 17:54 Lipase 16 U/L (13-60) 08/24/24 17:54 HCG, Qual Negative (Negative) 08/24/24 15:08 Urine Color Yellow (Yellow) 08/24/24 15:08 Urine Appearance Clear (CLEAR) 08/24/24 15:08 Urine pH 5.0 (5-7) 08/24/24 15:08 Ur Specific [place] 1.006 (1.005-1.030) 08/24/24 15:08 Urine Protein Negative (Negative) 08/24/24 15:08 Urine Glucose (UA) Negative (Normal) 08/24/24 15:08 Urine Ketones Negative (Negative) 08/24/24 15:08 Urine Blood 3+ (Negative) A 08/24/24 15:08 Urine Nitrate Negative (Negative) 08/24/24 15:08 Urine Bilirubin Negative (Negative) 08/24/24 15:08 Urine Urobilinogen 0.2 mg/dL (Negative) 08/24/24 15:08 Ur Leukocyte Esterase 1+ (Negative) A 08/24/24 15:08 Urine RBC 3-5 /hpf (0-2) 08/24/24 15:08 Urine WBC 6-10 /hpf (0-5) 08/24/24 15:08 Ur Squamous Epith Cells 0-5 /hpf (0-5) 08/24/24 15:08 Amorphous Sediment Not Reportable 08/24/24 15:08 Urine Bacteria None seen /hpf (NONE) 08/24/24 15:08 Hyaline Casts 0-4 /lpf H 08/24/24 15:08 All radiology interpretation(s) finalized by discharge Discharge Plan Discharge Patient Disposition: Home Clinical Impression: Endometriosis Condition: Stable Prescriptions: New ondansetron HCl 4 mg tablet 4 mg PO Q8H Qty: 30 0RF hydrocodone-acetaminophen 7.5-325 mg tablet 1 tab PO Q8H PRN (Reason: pain) Qty: 15 0RF No Action potassium bicarb and chloride 20 mEq packet 1 packet PO TID pantoprazole 20 mg tablet,delayed release (DR/EC) 20 mg PO BID pregabalin [Lyrica] 100 mg capsule 100 mg PO QDAY colchicine 0.6 mg capsule 0.6 mg PO BID hydroxychloroquine [Plaquenil] 200 mg tablet 200 mg PO BID acetaminophen [Tylenol Extra Strength] 500 mg tablet 1,000 mg PO TID PRN (Reason: Pain) cyclobenzaprine 10 mg tablet 10 mg PO BID PRN (Reason: muscle spasm) venlafaxine [Effexor XR] 150 mg capsule,extended release 24hr 150 mg PO DAILY Qty: 30 1RF ramelteon [Rozerem] 8 mg tablet 8 mg PO .HS Qty: 30 0RF metformin 500 mg tablet extended release 24 hr See Rx Instructions .ROUTE .COMPLEX Qty: 360 0RF Dose Instruction: TAKE TWO TABLETS BY MOUTH TWICE DAILY Rx Instructions: TAKE TWO TABLETS BY MOUTH TWICE DAILY alprazolam 0.5 mg tablet 0.5 mg PO TID PRN (Reason: anxiety) Qty: 30 3RF aripiprazole 5 mg tablet See Rx Instructions .ROUTE .COMPLEX Qty: 30 2RF Dose Instruction: TAKE ONE TABLET BY MOUTH DAILY Rx Instructions: TAKE ONE TABLET BY MOUTH DAILY lisdexamfetamine 40 mg capsule 40 mg PO QAM 30 Days Qty: 30 0RF aspirin 325 mg Tablet 325 mg PO Q4H PRN (Reason: Pain) Rx Instructions: PT TOOK 2 TAB THIS MORNING. Multiple Vitamin, Womens Tablet 1 tab PO DAILY naproxen 500 mg tablet 500 mg PO DAILY PRN (Reason: pain) Qty: 30 0RF ondansetron 4 mg tablet,disintegrating 4 mg PO Q6H PRN (Reason: nausea and vomiting) Qty: 14 0RF Discharge Orders: Discharge ED (Routine); Ordered 08/24/24 Ordered By: Milind Miller Referrals: ANNALISA CHILEL APRN [Primary Care Provider] - Patient Instructions: Endometriosis (ED), Opioid Safety, Pain Management Activity Restrictions/Additional Instructions: Please call your HYDRAULIC MECHANIC in regards to pain management and for general reevaluation. Keep plan for surgery in October. Return with any new or concerning symptoms. Pain medications as prescribed now, Zofran as prescribed. May apply heat for added relief. Drink plenty of fluids. Coding Level of Care Code ED Exceptional Student Education Teacher for Boogie Edwards
[2024-08-24 17:59] LABS: Basophils # 0.1 10^3/uL (0.0-0.1); Basophils % 0.6 %; Eosinophils # 0.2 10^3/uL (0.0-0.8); Eosinophils % 2.3 %; Hematocrit 40.3 % (36-47); Lymphocytes # 2.8 10^3/uL (0.8-4.8); Lymphocytes % 33.2 %; Mean Corpuscular HGB Conc 33.5 g/dL (30-55); Mean Corpuscular Hemoglobin 30.6 pg (27-33); Mean Corpuscular Volume 91.4 fl (85-98); Mean Platelet Volume 8.7 fL (7.4-10.4); Monocytes # 0.6 10^3/uL (0.2-0.9); Monocytes % 7.7 %; Neutrophils # 4.63 10^3/uL (1.8-7.7); Neutrophils % 55.7 %; Nucleated Red Blood Cells % 0 %; Platelet Count 462 10^3/cmm (157-399); Red Blood Count 4.41 10^6/uL (3.85-5.65); Red Cell Distribution Width 13.9 % (12.1-15.1); White Blood Count 8.31 10^3/uL (3.29-11.43)
[2024-08-24 18:02] LABS: Add Urine Culture? Yes
[2024-08-24 18:21] LABS: Alanine Aminotransferase 26 U/L (0-33); Albumin Level 4.3 g/dL (3.5-5.2); Alkaline Phosphatase 89 U/L (35-105); Anion Gap 13.9 (5-19); Aspartate Amino Transferase 16 U/L (0-32); Blood Urea Nitrogen 5 mg/dL (6-20); Calcium 9.1 mg/dL (8.5-10.5); Carbon Dioxide 26 mmol/L (22-29); Chloride 103 mmol/L (98-107); Creatinine Clr Calc Pharmacy 141.6837; Globulin 2.6 g/dL (1.3-4.6); Glomerular Filtration Rate 110.2 mL/min (90-130); Glucose 90 mg/dL (65-115); Lipase 16 U/L (13-60); Osmolality Calculated 285 mOsm/kg (285-295); Potassium 3.9 mmol/L (3.5-5.1); Sodium 139 mmol/L (136-145); Total Bilirubin 0.2 mg/dL (0.15-1.2); Total Protein 6.9 g/dL (6.6-8.7)
[2024-08-24] MEDS: ketorolac 60 mg/2 mL INJ 30 MG IVP (18:34)
[2024-08-24] MEDS: ondansetron 2 mg/ML SDV 2 mL 4 MG IVP (18:34)
[2024-08-24] MEDS: iohexol 350 mg/mL 500 mL Btl (per mL) IV (18:53)
[2024-08-24 18:54] LABS: HCG Qualitative Urine. Negative (Negative)
--- NOTE | 2024-08-24 20:08 | USR_ITS ---
PROCEDURE INFORMATION: Exam: US Pelvis, Transvaginal, Non-Obstetric Exam date and time: 08/24/2024 8:24 PM Age: 39 years old Clinical indication: Pelvic pain; Prior surgery; Surgery date: 1-6 months; Surgery type: Negative qual hcg, [id number]-l4, had laparoscopy 07/19/2024, Recommending total hysterectomy, which is scheduled for October. ; Additional info: Rlq pain, recently diagnosed endometriosis TECHNIQUE: Imaging protocol: Real-time transvaginal pelvic (non-obstetric) ultrasound with image documentation. Transvaginal imaging was used for better evaluation of the endometrium, adnexa, and/or cervix. COMPARISON: US pelv w/transvag [id number] 09/16/2023 3:33 AM FINDINGS: Uterus: Globular contour of the uterus. The uterus measures 9.4 x 6.1 x 7.4 cm. Diffuse mild heterogeneity echotexture in the myometrium. 5.0 x 4.2 x 4.7 cm intrauterine leiomyoma. Poor visualization of the endometrium. Right ovary/adnexa: Markedly enlarged right ovary. The right ovary measures 6.5 x 4.7 x 9.9 cm with a volume of 160.4 ml. Two mildly complex cyst with homogeneous internal echoes in the right ovary, the larger measures 5.0 x 3.5 x 4.1 cm. No abnormal flow in the right adnexa on Doppler imaging. No evidence for hydrosalpinx. Left ovary/adnexa: The left ovary is enlarged. The left ovary measures 4.7 x 3.0 x 4.9 cm with a volume of 36.8 ml. Complex cystic focus with homogeneous internal echoes in the left ovary measuring 3.6 x 2.1 cm. This may represent a hemorrhagic cyst. No abnormal flow on Doppler imaging in the left adnexa. No evidence for hydrosalpinx. Urinary bladder: Urinary bladder is limited. Vasculature: Normal arterial and venous waveforms on Doppler imaging in the left ovary. Normal arterial and venous waveforms on Doppler imaging in the right ovary. Intraperitoneal space: No free fluid in the pelvis. US/US transvaginal [id number] IMPRESSION: 1. Markedly enlarged right ovary and enlarged left ovary. Complex cysts in both ovaries suggestive of endometriomas. 2. Findings suggesting adenomyosis in the uterus with a focal intrauterine leiomyoma. Limited visualization of the endometrium. 3. No evidence for hydrosalpinx on ultrasound.
[2024-08-24] MEDS: morphine 4 mg/mL SDV 1 mL IVP ×2 (20:36→22:04)
== END 2024-08-24 22:29 | disposition home or self-care (01) ==
PROVIDERS: Emergency Provider Physician Assistant; PCP Nurse Practitioner Family
DX: N80.9 Endometriosis, unspecified (principal); Z79.84 Long term (current) use of oral hypoglycemic drugs; M32.9 Systemic lupus erythematosus, unspecified
CPT/HCPCS: 36415; 74177; 76830; 80053; 81001; 81025; 83690; 85025; 87086; 96374; 96375; 96376; 99285; J1885; J2270; J2405

== ENCOUNTER 2024-09-15 15:31 | Outpatient (CLI) | payer MEDICARE, SELFPAY ==
--- NOTE | 2024-09-15 15:44 | USR_ITS ---
PROCEDURE INFORMATION: Exam: US Pelvis, Complete, Non-Obstetric Exam date and time: 09/15/2024 3:54 PM Age: 39 years old Clinical indication: Screening exam; Prior surgery; Surgery date: 6+ months; Surgery type: Unsure of dates; Patient HX: Patient says she has had surg for endometriosis; Additional info: Fertility testing TECHNIQUE: Imaging protocol: Transabdominal pelvic nonobstetric ultrasound. Complete exam. Real time ultrasound with image documentation. COMPARISON: US transvaginal [id number] 08/24/2024 8:24 PM FINDINGS: Limitations: Technologist notes technically difficult study. Uterus: Uterus measures 10.8 cm on uterine trace and 7.9 x 5.3 cm on transverse exam. Heterogeneous echotexture and globular contour as noted with prior exam. Findings again suggest fibroid uterus. Small Nabothian cysts noted. Endometrium measures up to 16 mm. Right ovary/adnexa: Right ovary measures 5.5 x 2.8 x 7.8 cm. Large predominant anechoic cystic structure of the right ovary appearing to occupies most of the right ovary. Minimally complex regarding internal echoes. Right ovarian flow is seen. PSV 12 cm/s with RI 0.63. Left ovary/adnexa: Left ovary measures 3.6 x 1.9 x 3.1 cm. Three follicles or small follicular cyst of the left ovary, largest measuring 1.7 x 1.7 x 1.9 cm. Left ovarian flow is seen. Intraperitoneal space: Free fluid around the fundus of the uterus and in the cul-de-sac, mild. Urinary bladder: Not visualized. US/US pelv w/transvag [id number] IMPRESSION: 1. [id number] enlarged right ovary with large predominant anechoic cystic structure occupying majority of the right ovary, with minimally complex appearance regarding internal echoes. Findings could represent mildly complex right ovarian cyst or endometrioma. 2. Three follicles or small follicular cyst of the left ovary, largest measuring 1.7 x 1.7 x 1.9 cm. 3. Heterogeneous echotexture and lobular contour of the uterus suggestive of fibroid appearing uterus, as noted with prior exam. 4. Endometrial thickening up to 16 mm. 5. Mild free fluid around the fundus of the uterus and in the cul-de-sac.
[2024-09-15 17:04] LABS: Estradiol 35.5 pg/mL
== END 2024-09-15 15:32 | disposition home or self-care (01) ==
PROVIDERS: PCP Nurse Practitioner Family; Visit Provider Obstetrics & Gynecology Reproductive Endocrinology
DX: Z31.41 Encounter for fertility testing (principal); D27.0 Benign neoplasm of right ovary; D25.9 Leiomyoma of uterus, unspecified; N85.00 Endometrial hyperplasia, unspecified
CPT/HCPCS: 36415; 76830; 76856; 82670; 83001; 83520

== ENCOUNTER 2025-10-03 11:15 | Inpatient (IN) | payer MEDICARE, MEDICAID, SELFPAY ==
--- NOTE | 2025-10-03 11:25 | ECG_ITS ---
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 Measurements Intervals [place] Rate: 113 P: 60 DE: 130 QRS: -50 QRSD: 82 T: 85 QT: 293 QTc: 402 Interpretive Statements SINUS TACHYCARDIA LEFT AXIS DEVIATION [QRS AXIS < -30] POSSIBLE RIGHT VENTRICULAR CONDUCTION DELAY [RSR (QR) IN V1/V2] SEPTAL MYOCARDIAL INFARCTION , OF INDETERMINATE AGE [40+ ms Q WAVE IN V1/V2] Compared to ECG 09/19/2020 13:39:57 Left-axis deviation now present Sinus rhythm no longer present Myocardial infarct finding still present Electronically Signed On 10-03-2025 23:56:40 STUDENT ASSISTANCE COUNSELOR by Niles Stephens M.D. [email or web address]
--- NOTE | 2025-10-03 11:25 | W.ED.PSYCHS ---
HPI - Psych General: Chief Complaint: Psychiatric Symptoms Stated Complaint: crisis sent, e Time Seen by Provider: 10/03/25 11:23 History of Present Illness: 40-year-old patient with a history of obesity, epilepsy, depression, lupus and fibromyalgia who presents to the emergency room from the crisis center with suicidal thoughts. She says she has not had this happen before and she does take medicine for depression. She says there was a life event that triggered this and she does not really care to speak of it right now. Related Data Home Medications ?Medication ?Instructions ?Recorded ?Confirmed acetaminophen 500 mg tablet 1,000 mg PO TID PRN Pain 11/29/19 09/10/25 (Tylenol Extra Strength) cyclobenzaprine 10 mg tablet 10 mg PO BID PRN muscle spasm 11/29/19 09/10/25 hydroxychloroquine 200 mg tablet 200 mg PO BID 11/29/19 09/10/25 (Plaquenil) colchicine 0.6 mg capsule 0.6 mg PO BID 11/30/19 09/10/25 pregabalin 100 mg capsule (Lyrica) 100 mg PO QDAY 11/30/19 09/10/25 aspirin 325 mg tablet 325 mg PO Q4H PRN Pain 09/19/20 09/10/25 mdyuddmucsxd-Xo-mymt-minerals 1 tab PO DAILY 09/19/20 09/10/25 (Multiple Vitamin, Womens tablet) potassium bicarbonate and chloride 1 packet PO TID 08/06/21 09/10/25 20 mEq oral packet pantoprazole 20 mg tablet,delayed 20 mg PO BID 08/03/22 09/10/25 release Previous Rx's ?Medication ?Instructions ?Recorded naproxen 500 mg tablet 500 mg PO DAILY PRN pain #30 tabs 09/19/20 ondansetron 4 mg disintegrating 4 mg PO Q6H PRN nausea and 09/16/23 tablet vomiting #14 tabs metformin 500 mg tablet,extended See Rx Instructions .Route 04/28/24 release 24 hr .COMPLEX #360 tabs hydrocodone 7.5 mg-acetaminophen 1 tab PO Q8H PRN pain #15 tabs 08/24/24 325 mg tablet ondansetron HCl 4 mg tablet 4 mg PO Q8H #30 tabs 08/24/24 alprazolam 0.5 mg tablet 0.5 mg PO TID PRN anxiety #30 tabs 07/20/25 aripiprazole 5 mg tablet See Rx Instructions .Route 08/09/25 .COMPLEX #30 tabs eszopiclone 1 mg tablet (Lunesta) 1 mg PO .HS #30 tabs 09/10/25 lisdexamfetamine 40 mg capsule 40 mg PO QAM 30 days #30 caps 09/10/25 venlafaxine 150 mg 150 mg PO DAILY #30 caps 09/10/25 capsule,extended release 24 hr (Effexor XR) Allergies Allergy/AdvReac Type Severity Reaction Status Date / Time levetiracetam (From Keppra) Allergy Hives Verified 09/10/25 10:52 varenicline (From Chantix) AdvReac Severe ADR-Anxiety Verified 09/10/25 10:52 divalproex sodium (From AdvReac hallucinati Verified 09/10/25 10:52 Depakote) ons gabapentin AdvReac Makes me Verified 09/10/25 10:52 hyper oxcarbazepine (From AdvReac Liver Verified 09/10/25 10:52 Trileptal) complications Review of Systems Narrative: Constitutional symptoms: Negative except as documented in HPI. Skin symptoms: Negative except as documented in HPI. Eye symptoms: Negative except as documented in HPI. ENMT symptoms: Negative except as documented in HPI. Respiratory symptoms: Negative except as documented in HPI. Cardiovascular symptoms: Negative except as documented in HPI. Gastrointestinal symptoms: Negative except as documented in HPI. Genitourinary symptoms: Negative except as documented in HPI. Musculoskeletal symptoms: Negative except as documented in HPI. Neurologic symptoms: Negative except as documented in HPI. Psychiatric symptoms: Negative except as documented in HPI. Endocrine symptoms: Negative except as documented in HPI. PFSH ED PFSH: Medical History (Updated 09/01/24 @ 00:01 by TORI Merchant) Psychiatric care No pertinent past medical history Denies diabetes, asthma, hypertension, DVT/PE PCP: OLAF Ramirez in [place], [place]. BRCA positive She states that her when she got in touch with her step siblings she was told that her maternal grandmother had breast cancer in her mother had ovarian cancer. She had herself tested for BRCA and states that she is a carrier for BRCA-1. -She did have CA-125 and ultrasound and mammograms done. In 2020 she states that she did get records of her BRCA testing and she states that she is not really a carrier. Lupus Diagnosed in 2007 she takes prednisone as needed for flares. -She is currently taking Plaquenil and is following up with rheumatology Dr. Watkins in [facility] with visits every 3 months Fibromyalgia Is on Lyrica managed by neurology Dr. Sandoval in [facility] Epilepsy Diagnosed as a teenager. She states that she is allergic to a lot of the seizure medication. States that her seizures are usually absent seizures. Denies any seizures since August 2018. She follows with neurology Dr. Sandoval in [facility] and sees him every 3 months. She is not on any medication at this time. Major depressive disorder, recurrent severe without psychotic features Surgical History History of orthopedic surgery October 2019--resetting of left arm fracture and left rotator cuff surgery performed in [facility] S/P cholecystectomy Laparoscopic cholecystectomy on 01/23/2017 in the period S/P tonsillectomy Performed at age 16 Status post surgery Left ankle surgery in March 2021, performed at [facility] Status post surgery Surgery on the left arm for a fracture S/P section x2 in 2006 and 2010 Family History Mother Ovarian cancer diagnosed at age 46 Grandmother Hypertension maternal Heart disease maternal Breast cancer maternal grandmother, diagnosed in her 50s Daughter Heart disease Grandfather Brain cancer paternal Family/Other Adopted She is adopted and is not know most of her family history but got in contact with her one half brother and obtained some family history as documented Social History Smoking and tobacco/nicotine status: never used tobacco/nicotine Alcohol intake: current (twice a year) Alcohol intake frequency: holidays/special occasions only Alcohol type: hard liquor Substance/Drug Use: current Substance/Drug use frequency: Special occassions/opportunity only Physical Exam Narrative: EXAM NARRATIVE: General: Alert. no acute distress Skin: Warm, dry Head: Normocephalic, atraumatic. Neck: Supple, trachea midline. Eye: Extraocular movements are intact. Ears, nose, mouth and throat: Oral mucosa moist. Cardiovascular: Regular rate and rhythm, Normal peripheral perfusion. Respiratory: Lungs are clear to auscultation, respirations are non-labored, breath sounds are equal, Symmetrical chest wall expansion. Gastrointestinal: Soft, Nontender, Non distended Musculoskeletal: Normal ROM, no deformity. Neurological: Alert and oriented. No focal neurological deficit observed. Psychiatric: Cooperative, depressed, expresses suicidal ideation. Course Vital Signs: Vital signs: Vital Signs Temperature 98.7 F 10/03/25 11:28 Pulse Rate 113 H 10/03/25 11:28 Respiratory Rate 16 10/03/25 11:28 Blood Pressure 169/106 10/03/25 11:28 Pulse Oximetry 98 10/03/25 11:28 Oxygen Delivery Me thod Room Air 10/03/25 11:28 MDM - Psych Medical Decision Making Medical decision making: Patient's reason for coming to the emergency room: Suicidal ideation Social determinants: Patient is disabled I reviewed the patient's medical record. Patient follows in rheumatology clinic for lupus I reviewed the patient's current home meds Patient is on hydroxychloroquine. Also lisdexamfetamine which may be why her amphetamines are positive in her urine Alternate historians: Differential diagnosis: Patient with reported depression and suicidal ideation. concerns for infection, alcohol intoxication, cardiac issues or other medical problems prior to psychiatric admission. Workup: labwork, ekg ordered to evaluate the pathologies and to clear the patient medically prior to psychiatric admission Lab Review: Laboratory results were reviewed and interpreted by myself the emergency room physician. - Medically cleared. - EKG shows no ischemic changes. - Blood alcohol level is negative, -Tylenol and salicylate levels are negative. - Drug screen is positive for amphetamines, benzodiazepines and marijuana - No signs of infection, urinalysis clear and white count is not elevated - No anemia. - BUN and creatinine are within normal limits. Assessment of risk: - Level of risk - Was hospitalization considered? Reexamination: Patient remained stable. No increased work of breathing. No altered mental status. No focal motor deficits. Consultation: I spoke with Dr. Chin who agrees to admission Assessment and plan: Suicidal ideation Depression -Admission to neuropsychiatric unit for continued evaluation and treatment. - All lab work was reviewed and interpreted personally by myself, the ER physician - Evaluation and treatment of this problem were appropriate in the emergency setting Lab Data 10/03/25 11:35 10/03/25 11:35 Laboratory Results WBC 9.57 10^3/uL (3.29-11.43) 10/03/25 11:35 RBC 4.58 10^6/uL (3.85-5.65) 10/03/25 11:35 Hgb 13.90 g/dL (11.27-16.99) 10/03/25 11:35 Hct 41.0 % (36-47) 10/03/25 11:35 MCV 89.5 fl (85-98) 10/03/25 11:35 MCH 30.3 pg (27-33) 10/03/25 11:35 MCHC 33.9 g/dL (30-55) 10/03/25 11:35 RDW 13.2 % (12.1-15.1) 10/03/25 11:35 Plt Count 395 10^3/cmm (157-399) 10/03/25 11:35 MPV 9.0 fL (7.4-10.4) 10/03/25 11:35 Neut % (Auto) 60.2 % 10/03/25 11:35 Lymph % (Auto) 28.2 % 10/03/25 11:35 [place] % (Auto) 8.4 % 10/03/25 11:35 Eos % (Auto) 2.4 % 10/03/25 11:35 Baso % (Auto) 0.5 % 10/03/25 11:35 Neut # (Auto) 5.76 10^3/uL (1.8-7.7) 10/03/25 11:35 Lymph # (Auto) 2.7 10^3/uL (0.8-4.8) 10/03/25 11:35 [place] # (Auto) 0.8 10^3/uL (0.2-0.9) 10/03/25 11:35 Eos # (Auto) 0.2 10^3/uL (0.0-0.8) 10/03/25 11:35 Baso # (Auto) 0.1 10^3/uL (0.0-0.1) 10/03/25 11:35 Nucleated RBC % (auto) 0 % 10/03/25 11:35 Nucleated RBCs # 0.0 /100WBC 10/03/25 11:35 Sodium 142 mmol/L (136-145) 10/03/25 11:35 Potassium 3.2 mmol/L (3.5-5.1) L 10/03/25 11:35 Chloride 101 mmol/L (98-107) 10/03/25 11:35 Carbon Dioxide 31 mmol/L (22-29) H 10/03/25 11:35 Anion Gap 13.2 (5-19) 10/03/25 11:35 BUN 4 mg/dL (6-20) L 10/03/25 11:35 Creatinine 0.5 mg/dL (0.5-0.9) 10/03/25 11:35 GFR Calculation 135.3 mL/min (90-130) H 10/03/25 11:35 Glucose 75 mg/dL (65-115) 10/03/25 11:35 Calculated Osmolality 290 mOsm/kg (285-295) 10/03/25 11:35 Calcium 9.6 mg/dL (8.5-10.5) 10/03/25 11:35 Total Bilirubin 0.2 mg/dL (0.15-1.2) 10/03/25 11:35 AST 16 U/L (0-32) 10/03/25 11:35 ALT 38 U/L (0-33) H 10/03/25 11:35 Alkaline Phosphatase 123 U/L (35-105) H 10/03/25 11:35 Total Protein 7.0 g/dL (6.6-8.7) 10/03/25 11:35 Albumin 4.4 g/dL (3.5-5.2) 10/03/25 11:35 Globulin 2.6 g/dL (1.3-4.6) 10/03/25 11:35 Salicylates < 0.3 mg/dL (3-10) L 10/03/25 11:35 Urine Opiates Screen Negative ng/mL (Negative) 10/03/25 11:24 Acetaminophen < 5.0 ug/mL (10-30) L 10/03/25 11:35 Ur Barbiturates Screen Negative ng/mL (Negative) 10/03/25 11:24 Ur Phencyclidine Scrn Negative ng/mL (Negative) 10/03/25 11:24 Ur Amphetamines Screen Positive ng/mL (Negative) H 10/03/25 11:24 U Benzodiazepines Scrn Positive ng/mL (Negative) H 10/03/25 11:24 Urine Cocaine Screen Negative ng/mL (Negative) 10/03/25 11:24 U Marijuana (THC) Screen Positive ng/mL (Negative) H 10/03/25 11:24 Ethyl Alcohol < 10 mg/dL (0-10) 10/03/25 11:35 No radiology studies performed this visit Discharge Plan Discharge Admit Provider: Ziyad Chin Condition: Stable Coding Level of Care Code ED Human Resources Benefits Coordinator for Boogie Edwards
[2025-10-03 11:28] VITALS: BP 169/106; PULSE 113; RESP 16; TEMP 37.1; O2SAT 98; BMI 35.3
[2025-10-03 11:45] LABS: Hematocrit 41.0 % (36-47); Hemoglobin 13.90 g/dL (11.27-16.99); Mean Corpuscular HGB Conc 33.9 g/dL (30-55); Mean Corpuscular Hemoglobin 30.3 pg (27-33); Mean Corpuscular Volume 89.5 fl (85-98); Nucleated Red Blood Cells % 0 %; Platelet Count 395 10^3/cmm (157-399); Red Blood Count 4.58 10^6/uL (3.85-5.65); White Blood Count 9.57 10^3/uL (3.29-11.43)
[2025-10-03 11:45] LABS: PCP Screen Urine Negative (Negative)
[2025-10-03 12:11] LABS: Alanine Aminotransferase 38 U/L (0-33); Albumin Level 4.4 g/dL (3.5-5.2); Alkaline Phosphatase 123 U/L (35-105); Anion Gap 13.2 (5-19); Aspartate Amino Transferase 16 U/L (0-32); Blood Urea Nitrogen 4 mg/dL (6-20); Calcium 9.6 mg/dL (8.5-10.5); Carbon Dioxide 31 mmol/L (22-29); Chloride 101 mmol/L (98-107); Globulin 2.6 g/dL (1.3-4.6); Glucose 75 mg/dL (65-115); Osmolality Calculated 290 mOsm/kg (285-295); Potassium 3.2 mmol/L (3.5-5.1); Sodium 142 mmol/L (136-145); Total Protein 7.0 g/dL (6.6-8.7)
[2025-10-03 12:19] LABS: Salicylate < 0.3 mg/dL (3-10)
[2025-10-03 12:20] LABS: Acetaminophen < 5.0 ug/mL (10-30); Alcohol Level < 10 mg/dL (0-10)
[2025-10-03 13:58] VITALS: PULSE 99; RESP 16; O2SAT 99
[2025-10-03 14:12] VITALS: BP 151/96; PULSE 102; RESP 16; TEMP 36.6; O2SAT 98
--- OUTSIDE RECORDS SUMMARY | 2025-10-03 14:33 | XMS_ITS | Encounter Summary ---
Author Organization [facility] Address [address] [place] [address] Care Team Providers Care Instrumentation Fitter Name Role Phone Edward Lawrence, OLAF, Zaire Navarrete Primary Care Pro vider Encounter Details Date Type Department Care Team (Late st Contact Info) Description 12/18/2016 Lab Requisition [facility] Laboratory Services [address] [place] [address] AsaelterSugar, ALCOHOLISM WORKER [address] [place] [address] Social History Tobacco Use Types Packs/Day Years Used Date Smoking Tobacco: Never Assessed Comments Unknown Sex and Gender Information Value Date Recorded Sex Assigned at Not on file Legal Sex Female 1:37 PM BABY FORMULA WORKER Gender Identity Not on file Sexual Orientation Not on file documented as of this encounter Plan of Treatment Not on file documented as of this encounter Procedures Procedure Name Priority Date/Time Associated Diagnosis Comments LMW HEPARIN ACTIVITY Routine 12/18/2016 11:30 AM BABY FORMULA WORKER documented in this encounter Results * LMW HEPARIN MONITORING (12/18/2016 11:30 AM BABY FORMULA WORKER) ANTI-XA LMW HEP 0.29 IU/mL 12/18/2016 1:39 PM BABY FORMULA WORKER [facility] [employer] [facility] Blood Collection / Unknown 12/18/2016 11:30 AM BABY FORMULA WORKER 12/18/2016 1:15 PM BABY FORMULA WORKER Narrative [facility] [employer] [facility] - 12/18/2016 1:39 PM BABY FORMULA WORKER Enoxaparin (Lovenox) Anti-Xa levels in Adults Obtain peak enoxaparin anti-Xa level at 4hr post dose. For therapeutic anticoagulation: For 1mg/kg Q 12hr dosinhr level should be between 0.5 and 1.2 IU/ml For 1.5mg/kg daily dosinhr level should be >1, but less than 2 IU/ml For thromboprophylaxis: 4hr level should be between 0.2 and 0.6 IU/ml What patients might benefit from anti-Xa monitoring: Patients at extremes of body weight: Less than 45kg Greater than 100kg for thromboprophylaxis Greater than 150kg for therapeutic anticoagulation patients with or without mechanical heart valves should have anti-Xa monitoring throughout --hematology consult may be warranted. Patients with chronic renal insufficiency with calculated creatinine clearance <20ml/min OR on Hemodialysis/CRRT patients should NOT receive enoxaparin. Heparin is preferred. us Sugar Barrios NP HEMATOLOGY ORDERABLES Final Re sult [facility] CLIA# [id number] [address] [place] [address] documented in this encounter Visit Diagnoses Not on filedocumented in this encounter Care Teams Instrumentation Fitter Relationship Specialty Start Date End Date Edward Lawrence, OLAF Zimmerman [address] [place] [address] PCP - General NURSE PRACTITIONER 09/23/12 documented as of this encounter
--- OUTSIDE RECORDS SUMMARY | 2025-10-03 14:33 | XMS_ITS | Encounter Summary ---
Author Organization [facility] Address [address] [place] [address] Care Team Providers Care Synthetic Plasterer Name Role Phone Edward Lawrence, OLAF, Zaire Navarrete Primary Care Pro vider Encounter Details Date Type Department Care Team (Late st Contact Info) Description 01/08/2017 Lab Requisition [facility] Laboratory Services [address] [place] [address] AsaelterSugar, FACILITY COORDINATOR [address] [place] [address] Social History Tobacco Use Types Packs/Day Years Used Date Smoking Tobacco: Never Assessed Comments Unknown Sex and Gender Information Value Date Recorded Sex Assigned at Not on file Legal Sex Female 1:37 PM DETECTIVE Gender Identity Not on file Sexual Orientation Not on file documented as of this encounter Plan of Treatment Not on file documented as of this encounter Procedures Procedure Name Priority Date/Time Associated Diagnosis Comments LMW HEPARIN ACTIVITY Routine 01/08/2017 1:00 PM DETECTIVE documented in this encounter Results * LMW HEPARIN MONITORING (01/08/2017 1:00 PM DETECTIVE) ANTI-XA LMW HEP 0.93 IU/mL 01/08/2017 5:16 PM DETECTIVE [facility] [employer] [facility] Blood Collection / Unknown 01/08/2017 1:00 PM DETECTIVE 01/08/2017 3:26 PM DETECTIVE Narrative [facility] [employer] [facility] - 01/08/2017 5:16 PM DETECTIVE Enoxaparin (Lovenox) Anti-Xa levels in Adults Obtain [...] Barrios NP HEMATOLOGY ORDERABLES Final Re sult [facility]ORY [facility] CLIA# [id number] [address] [place] [address] documented in this encounter Visit Diagnoses Not on filedocumented in this encounter Care Teams Synthetic Plasterer Relationship Specialty Start Date End Date Edward Lawrence, OLAF Zimmerman [address] [place] [address] PCP - General NURSE PRACTITIONER 09/23/12 documented as of this encounter
--- OUTSIDE RECORDS SUMMARY | 2025-10-03 14:33 | XMS_ITS | Encounter Summary ---
Author Organization [facility] Address [address] [place] [address] Care Team Providers Care Men'S Furnishings Salesperson Name Role Phone OLAF Leon Sr., Zaire Navarrete Primary Care Pro vider Encounter Details Date Type Department Care Team (Late st Contact Info) Description 12/16/2016 Lab Requisition [facility] Laboratory Services [address] [place] [address] Sugar Barrios NP [address] [place] [phone] Social History Tobacco Use Types Packs/Day Years Used Date Smoking Tobacco: Never Assessed Comments Unknown Sex and Gender Information Value Date Recorded Sex Assigned at Not on file Legal Sex Female 1:37 PM PETROLEUM TERMINAL PLANT OPERATOR Gender Identity Not on file Sexual Orientation Not on file documented as of this encounter Plan of Treatment Not on file documented as of this encounter Visit Diagnoses Not on filedocumented in this encounter Care Teams Men'S Furnishings Salesperson Relationship Specialty Start Date End Date Zaire Leon Sr., FNP [address] [place] [address] PCP - General NURSE PRACTITIONER 09/23/12 documented as of this encounter
--- OUTSIDE RECORDS SUMMARY | 2025-10-03 14:33 | XMS_ITS | Encounter Summary ---
Author Organization [facility] Address [address] [place] [address] Care Team Providers Care Airfield Operations Specialist Name Role Phone Edward Lawrence, OLAF, Zaire Navarrete Primary Care Pro vider Encounter Details Date Type Department Care Team (Late st Contact Info) Description 01/04/2017 Lab Requisition [facility] Laboratory Services [address] [place] [address] Fredi Modi MD [address] [place] [address] Social History Tobacco Use Types Packs/Day Years Used Date Smoking Tobacco: Never Assessed Comments Unknown Sex and Gender Information Value Date Recorded Sex Assigned at Not on file Legal Sex Female 1:37 PM JAVASCRIPT UI DEVELOPER Gender Identity Not on file Sexual Orientation Not on file documented as of this encounter Plan of Treatment Not on file documented as of this encounter Procedures Procedure Name Priority Date/Time Associated Diagnosis Comments LMW HEPARIN ACTIVITY Routine 01/04/2017 1:52 PM JAVASCRIPT UI DEVELOPER documented in this encounter Results * LMW HEPARIN MONITORING (01/04/2017 1:52 PM JAVASCRIPT UI DEVELOPER) ANTI-XA LMW HEP 0.37 IU/mL 01/04/2017 5:16 PM JAVASCRIPT UI DEVELOPER [facility] [employer] [facility] Blood Collection / Unknown 01/04/2017 1:52 PM JAVASCRIPT UI DEVELOPER 01/04/2017 4:21 PM JAVASCRIPT UI DEVELOPER Narrative [facility] [employer] [facility] - 01/04/2017 5:16 PM JAVASCRIPT UI DEVELOPER Enoxaparin (Lovenox) Anti-Xa levels in Adults Obtain [...] should NOT receive enoxaparin. Heparin is preferred. Fredi Modi MD HEMATOLOGY ORDERABLES Final Re sult [facility] LABORATORY SERVICES [facility] CLIA# [id number] [address] [place] [address] documented in this encounter Visit Diagnoses Not on filedocumented in this encounter Care Teams Airfield Operations Specialist Relationship Specialty Start Date End Date Edward Lawrence, OLAF [address] [place] [address] PCP - General NURSE PRACTITIONER 09/23/12 documented as of this encounter
--- OUTSIDE RECORDS SUMMARY | 2025-10-03 14:33 | XMS_ITS | Encounter Summary ---
Author Organization [facility] Address [address] [place] [address] Care Team Providers Care Grocery Store Manager Name Role Phone Edward Lawrence, OLAF, Zaire Navarrete Primary Care Pro vider Encounter Details Date Type Department Care Team (Late st Contact Info) Description 01/04/2017 Lab Requisition [facility] Laboratory Services [address] [place] [address] [place] [address] Fredi Modi MD [address] [place] [address] Social History Tobacco Use Types Packs/Day Years Used Date Smoking Tobacco: Never Assessed Comments Unknown Sex and Gender Information Value Date Recorded Sex Assigned at Not on file Legal Sex Female 1:37 PM CREEL CLEANER Gender Identity Not on file Sexual Orientation Not on file documented as of this encounter Plan of Treatment Not on file documented as of this encounter Procedures Procedure Name Priority Date/Time Associated Diagnosis Comments LMW HEPARIN ACTIVITY Routine 01/04/2017 9:38 AM CREEL CLEANER documented in this encounter Results * LMW HEPARIN MONITORING (01/04/2017 9:38 AM CREEL CLEANER) ANTI-XA LMW HEP 0.11 IU/mL 01/04/2017 3:10 PM CREEL CLEANER [facility] [employer] [facility] Blood Collection / Unknown 01/04/2017 9:38 AM CREEL CLEANER 01/04/2017 2:50 PM CREEL CLEANER Narrative [facility] [employer] [facility] - 01/04/2017 3:10 PM CREEL CLEANER Enoxaparin (Lovenox) Anti-Xa levels in Adults Obtain [...] Modi MD HEMATOLOGY ORDERABLES Final Re sult [facility] LAB[facility]ORY SERVICES [facility] CLIA# [id number] [address] [place] [address] documented in this encounter Visit Diagnoses Not on filedocumented in this encounter Care Teams Grocery Store Manager Relationship Specialty Start Date End Date Edward Lawrence, OLAF [address] [place] [address] PCP - General NURSE PRACTITIONER 09/23/12 documented as of this encounter
--- OUTSIDE RECORDS SUMMARY | 2025-10-03 14:33 | XMS_ITS | Encounter Summary ---
Author Organization [facility] Address [address] [place] [address] Care Team Providers Care Broommaker Name Role Phone Edward Lawrence, OLAF, Zaire Navarrete Primary Care Pro vider Encounter Details Date Type Department Care Team (Late st Contact Info) Description 12/23/2016 Lab Requisition [facility] Laboratory Services [address] [place] [address] AsaelterSugar, STRIPE MATCHER [address] [place] [address] Social History Tobacco Use Types Packs/Day Years Used Date Smoking Tobacco: Never Assessed Comments Unknown Sex and Gender Information Value Date Recorded Sex Assigned at Not on file Legal Sex Female 1:37 PM SOLAR SALES ESTIMATOR Gender Identity Not on file Sexual Orientation Not on file documented as of this encounter Plan of Treatment Not on file documented as of this encounter Procedures Procedure Name Priority Date/Time Associated Diagnosis Comments LMW HEPARIN ACTIVITY Routine 12/23/2016 9:30 AM SOLAR SALES ESTIMATOR documented in this encounter Results * LMW HEPARIN MONITORING (12/23/2016 9:30 AM SOLAR SALES ESTIMATOR) ANTI-XA LMW HEP 0.31 IU/mL 12/23/2016 1:25 PM SOLAR SALES ESTIMATOR [facility] [employer] [facility] Blood Collection / Unknown 12/23/2016 9:30 AM SOLAR SALES ESTIMATOR 12/23/2016 1:13 PM SOLAR SALES ESTIMATOR Narrative [facility] [employer] [facility] - 12/23/2016 1:25 PM SOLAR SALES ESTIMATOR Enoxaparin (Lovenox) Anti-Xa levels in Adults Obtain [...] Barrios NP HEMATOLOGY ORDERABLES Final Re sult [facility] LABORATORY SERVICES [facility] CLIA# [id number] [address] [place] [address] documented in this encounter Visit Diagnoses Not on filedocumented in this encounter Care Teams Broommaker Relationship Specialty Start Date End Date Edward Lawrence, OLAF Zimmerman [address] [place] [address] PCP - General NURSE PRACTITIONER 09/23/12 documented as of this encounter
--- OUTSIDE RECORDS SUMMARY | 2025-10-03 14:33 | XMS_ITS | Encounter Summary ---
Author Organization [facility] Address [address] [place] [address] Care Team Providers Care Oncology Patient Navigator Name Role Phone Edward Lawrence, OLAF, Zaire Navarrete Primary Care Pro vider Encounter Details Date Type Department Care Team (Late st Contact Info) Description 11/26/2016 Lab Requisition [facility] Laboratory Services [address] [place] [address] [facility], External Provider [address] [place] [address] Social History Tobacco Use Types Packs/Day Years Used Date Smoking Tobacco: Never Assessed Comments Unknown Sex and Gender Information Value Date Recorded Sex Assigned at Not on file Legal Sex Female 1:37 PM TANK CARPENTER Gender Identity Not on file Sexual Orientation Not on file documented as of this encounter Plan of Treatment Not on file documented as of this encounter Procedures Procedure Name Priority Date/Time Associated Diagnosis Comments LMW HEPARIN ACTIVITY Routine 11/26/2016 3:00 PM TANK CARPENTER documented in this encounter Results * LMW HEPARIN MONITORING (11/26/2016 3:00 PM TANK CARPENTER) ANTI-XA LMW HEP 0.11 IU/mL 11/26/2016 4:31 PM TANK CARPENTER [facility] [employer] [facility] Blood Collection / Unknown 11/26/2016 3:00 PM TANK CARPENTER 11/26/2016 3:59 PM TANK CARPENTER Narrative [facility] [employer] [facility] - 11/26/2016 4:31 PM TANK CARPENTER Enoxaparin (Lovenox) Anti-Xa levels in Adults Obtain [...] should NOT receive enoxaparin. Heparin is preferred. External Provider [facility] HEMATOLOGY ORDERABLES Annabelle welch Result [facility]# [id number] [address] [place] [id number] documented in this encounter Visit Diagnoses Not on filedocumented in this encounter Care Teams Oncology Patient Navigator Relationship Specialty Start Date End Date Edward Lawrence, OLAF [address] [place] [address] PCP - General NURSE PRACTITIONER 09/23/12 documented as of this encounter
--- OUTSIDE RECORDS SUMMARY | 2025-10-03 14:33 | XMS_ITS | Clinical Summary ---
Author Organization [facility] Address [address] [place] [address] Phone Care Team Providers Care Paint Spray Inspector Name Role Phone Edward Lawrence, OLAF, Zaire Navarrete Primary Care Pro vider Social History Tobacco Use Types Packs/Day Years Used Date Smoking Tobacco: Never Assessed Comments Unknown Sex and Gender Information Value Date Recorded Sex Assigned at Not on file Legal Sex Female 1:37 PM PURCHASING ADMINISTRATOR Gender Identity Not on file Sexual Orientation Not on file Plan of Treatment Health Maintenance Due Date Last Done Comments DTAP/TDAP/TD VACCINES (1 - Tdap) 2002 HEPATITIS B VACCINES (1 of 3 - 19+ 3-dose series) 07/2002 HPV/Cotest (21-29) 2004 HPV VACCINES (1 - 3-dose SCDM series) 2010 CERVICAL CANCER SCREENING 2013 HPV/Cotest (30-65) 2013 PAP SMEAR 2013 BREAST CANCER SCREENING 2023 INFLUENZA VACCINE (#1) 2025 Insurance [employer]US Care Teams Paint Spray Inspector Relationship Specialty Start Date End Date Zaire Leon Sr., FNP [address] [place] [address] PCP - General NURSE PRACTITIONER 09/23/12
--- OUTSIDE RECORDS SUMMARY | 2025-10-03 14:33 | XMS_ITS | Encounter Summary ---
Author Organization [facility] Address [address] [place] [address] Care Team Providers Care Lace Paper Machine Operator Name Role Phone Edward Lawrence, OLAF, Zaire Navarrete Primary Care Pro vider Encounter Details Date Type Department Care Team (Late st Contact Info) Description 12/31/2016 Lab Requisition [facility] Laboratory Services [address] [place] [address] [facility], External Provider [address] [place] [address] Social History Tobacco Use Types Packs/Day Years Used Date Smoking Tobacco: Never Assessed Comments Unknown Sex and Gender Information Value Date Recorded Sex Assigned at Not on file Legal Sex Female 1:37 PM EVENT ATTENDANT Gender Identity Not on file Sexual Orientation Not on file documented as of this encounter Plan of Treatment Not on file documented as of this encounter Procedures Procedure Name Priority Date/Time Associated Diagnosis Comments LMW HEPARIN ACTIVITY Stat 12/30/2016 2:00 PM EVENT ATTENDANT documented in this encounter Results * LMW HEPARIN MONITORING (12/30/2016 2:00 PM EVENT ATTENDANT) ANTI-XA LMW HEP 0.32 IU/mL 12/31/2016 3:00 PM EVENT ATTENDANT [facility] [email or web address] [facility] Blood Collection / Unknown 12/30/2016 2:00 PM EVENT ATTENDANT 12/31/2016 2:14 PM EVENT ATTENDANT Narrative [facility] [email or web address] [facility] - 12/31/2016 3:00 PM EVENT ATTENDANT Enoxaparin (Lovenox) Anti-Xa levels in Adults Obtain [...] Health Center HEMATOLOGY ORDERABLES Annabelle welch Result [facility]# [id number] [address] [place] [id number] documented in this encounter Visit Diagnoses Not on filedocumented in this encounter Care Teams Lace Paper Machine Operator Relationship Specialty Start Date End Date Edward Lawrence, OLAF [address] [place] [address] PCP - General NURSE PRACTITIONER 09/23/12 documented as of this encounter
--- NOTE | 2025-10-03 16:14 | PC.NURSE ---
Involuntary 96 hour hold rights read and reviewed with patient. Patient verbalized understandings and copy of rights given to patient.
[2025-10-03 20:02] VITALS: BP 144/98; PULSE 74; RESP 17; TEMP 36.5; O2SAT 98
[2025-10-04 06:00] VITALS: BP 146/89; PULSE 72; RESP 20; TEMP 36.6; O2SAT 95
[2025-10-04] MEDS: venlafaxine ER (24HR) 150 mg Capsule PO (09:49)
[2025-10-04] MEDS: multivitamin therapeutic Tablet 1 TAB PO (09:49)
[2025-10-04 14:00] VITALS: BP 133/84; PULSE 74; RESP 18; TEMP 36.7; O2SAT 96
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
[2025-10-04 19:38] VITALS: BP 127/84; PULSE 87; RESP 18; TEMP 36.6; O2SAT 97
[2025-10-05 06:00] VITALS: BP 150/86; PULSE 77; RESP 17; TEMP 36.7; O2SAT 95
[2025-10-05] MEDS: venlafaxine ER (24HR) 150 mg Capsule PO (08:03)
[2025-10-05] MEDS: multivitamin therapeutic Tablet 1 TAB PO (08:03)
[2025-10-05] MEDS: venlafaxine ER (24HR) 75 mg Capsule PO (08:03)
[2025-10-05 13:10] VITALS: BP 123/74; PULSE 91; RESP 16; TEMP 36.7; O2SAT 96
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
--- NOTE | 2025-10-05 14:51 | DCPLANNER ---
Imm was printed and given to pt and rights explained. Copy placed in pts file.
[2025-10-05 15:23] VITALS: BP 123/74; PULSE 91; RESP 18; TEMP 36.7; O2SAT 96
== END 2025-10-05 16:05 | disposition home or self-care (01) | DRG 885 ==
LOC: ER 11:38 → NP 13:46
PROVIDERS: Emergency Medicine; Admitting Provider Psychiatry & Neurology Psychiatry; Emergency Provider Emergency Medicine; PCP Nurse Practitioner Family; Visit Provider Psychiatry & Neurology Psychiatry
DX: F33.2 Major depressive disorder, recurrent severe without psychotic features (principal); F41.1 Generalized anxiety disorder; F43.12 Post-traumatic stress disorder, chronic; F90.2 Attention-deficit hyperactivity disorder, combined type; M32.9 Systemic lupus erythematosus, unspecified; M79.7 Fibromyalgia; G40.909 Epilepsy, unspecified, not intractable, without status epilepticus; G43.909 Migraine, unspecified, not intractable, without status migrainosus; Z63.4 Disappearance and death of family member; Z79.82 Long term (current) use of aspirin; Z81.8 Family history of other mental and behavioral disorders
CPT/HCPCS: 36415; 80053; 80306; 80307; 85025; 93005; 97150; 97165; 99285; J9999

== ENCOUNTER → 2025-11-13 08:20 | Outpatient (BNVA) | payer MEDICARE, SELFPAY | PROVIDERS: PCP Nurse Practitioner Family; Visit Provider Internal Medicine Endocrinology, Diabetes & Metabolism | DX: N20.0 Calculus of kidney (principal); E21.3 Hyperparathyroidism, unspecified; E55.9 Vitamin D deficiency, unspecified; R63.5 Abnormal weight gain; E28.2 Polycystic ovarian syndrome; Z79.890 Hormone replacement therapy; K76.0 Fatty (change of) liver, not elsewhere classified; R03.0 Elevated blood-pressure reading, without diagnosis of hypertension | CPT/HCPCS: 99213 ==